=== PATIENT | female | born 1955 | race Two or more races ===

== ENCOUNTER 2020-05-28 17:44 | Inpatient (IN) | payer OTHER ==
[~2020-05-28] VITALS: Ht 157.5 cm; Wt 64.9 kg
[2020-05-28] MEDS ORDERED: METF-440 PO (18:04)
--- NOTE | 2020-05-28 18:17 | NUR ---
IV ACCESS STARTED ON L AC G18. BLOOD DRAW DONE.
[2020-05-28 18:26] LABS: BASOPHILS # (AUTO) 0.1 /CMM (0.0-0.2); BASOPHILS % (AUTO) 0.7 % (0.0-2.0); HEMATOCRIT 45 % (33-45); HEMOGLOBIN 14.4 g/dL (11.5-14.8); LYMPHOCYTES % (AUTO) 4.6 % (20.0-44.0); MEAN CORPUSCULAR HGB CONC 32 g/dl (31.0-36.0); MEAN CORPUSCULAR VOLUME 88 fL (82-100); MONOCYTES # (AUTO) 0.9 /CMM (0.1-1.30); NEUTROPHILS # (AUTO) 19.8 /CMM (1.8-8.9); NEUTROPHILS % (AUTO) 90.7 % (43.0-81.0); PLATELET COUNT (AUTO) 310 /CMM (150-450); RED BLOOD CELL COUNT(AUTO) 5.06 MIL/uL (4.0-5.2); WHITE BLOOD COUNT (AUTO) 21.8 K/uL (4.3-11.0)
[2020-05-28] MEDS ORDERED: IV LR 1000 ML 1,000 ML IV ONE ×2 (18:30)
[2020-05-28 18:34] LABS: CALCIUM, SERUM 9.2 mg/dL (8.5-10.1); CREATININE 0.8 mg/dL (0.6-1.3)
[2020-05-28] MEDS ORDERED: DEXAMETHASONE SOD PHOSPHATE 4 MG/ML VIAL IV ONE (19:00)
[2020-05-28] MEDS ORDERED: MAGNESIUM HYDROXIDE 30 ML UDC PO PRN (19:30)
[2020-05-28] MEDS ORDERED: Z GUARD REMEDY 2 OZ OINT TP PRN (19:30)
[2020-05-28] MEDS ORDERED: PIPERACILLIN /TAZOBACTAM 3.375 G in IV D5W 50 ML IV ONE (19:30)
[2020-05-28] MEDS ORDERED: ACETAMINOPHEN 325 MG TABLET PO PRN (19:30)
[2020-05-28] MEDS ORDERED: ONDANSETRON HCL/PF 4 MG/2 ML VIAL IVP PRN (19:30)
[2020-05-28] MEDS ORDERED: HYDROCODONE/APAP 5/325MG TABLET PO PRN (19:30)
[2020-05-28] MEDS ORDERED: MAG HYDROX/AL HYDROX/SIMETH 30 ML UDC PO PRN (19:30)
[2020-05-28] MEDS ORDERED: ZOLPIDEM TARTRATE 5 MG TABLET PO PRN (19:30)
[2020-05-28] MEDS ORDERED: DEXAMETHASONE SOD PHOSPHATE 10 MG/ML VIAL ONE (19:48)
--- NOTE | 2020-05-28 19:51 | NUR ---
COVID ANTIGEN ORDERED
--- NOTE | 2020-05-28 20:00 | NUR ---
PATIENT GOING TO ROOM 208, WHEN BED IS READY, PALLIATIVE MEDICINE PHYSICIAN WILL CALL WHEN ROOM IS CLEANED.
--- NOTE | 2020-05-28 20:20 | NUR ---
PT VSS, RR EVEN & UNLABORED. DENIES CP, DIZZINESS, N/V AT THIS TIME. WILL CONT TO MONITOR.
[2020-05-28 20:29] LABS: BAND % (MANUAL) 7 % (0.0-5.0); LYMPHOCYTES % (MANUAL) 8 % (16-48); MONOCYTES % (MANUAL) 2 % (0-11.0); NEUTROPHILS % (MANUAL) 83 (42-76)
[2020-05-28 21:55] LABS: BILIRUBIN,DIRECT 0.4 mg/dL (0.0-0.2)
--- NOTE | 2020-05-28 22:03 | NUR ---
REPORT GIVEN TO DENISHA MIN FOR MARLO.
[2020-05-28 22:30] VITALS: BP 138/72
--- NOTE | 2020-05-28 22:33 | NUR ---
TELE/PHARMACY TECHNICIAN INSTRUCTOR NOTE Patient awake in bed, A/O x4, Lithuanian speaking only. Tele monitor reading sinus rhythm. No acute distress or SOB noted. Breathing even, slightly labored, on NC 4 LPM, [id number] 95%. No JVD. Tongue midline, no tracheal deviation. CRP <3seconds. Brachial and pedal pulses 2+. Skin warm, pink, dry, intact. Abdomen small, round, non-tender. BS active. Patient is incontinent. Urine output clear, yellow, no sediment. No edema. IV site LAC 18g, saline locked. No signs of redness or infiltration. Patient on cardiac diet. Patient currently has no appetite. Patient oriented to room. Patient refused flu vaccine. Bed in low position, wheels locked, side rails up x2, call light within reach.
[2020-05-29] VITALS: BP 108/64
[2020-05-29] MEDS: ENOXAPARIN SODIUM 40 MG/0.4 ML DISP.SYRIN SQ SCH ×2 (00:44→21:40)
[2020-05-29] MEDS ORDERED: AZITHROMYCIN 500 MG VIAL ONE (03:10)
[2020-05-29] MEDS ORDERED: CEFTRIAXONE 1 G VIAL ONE (03:19)
[2020-05-29] MEDS: AZITHROMYCIN 500 MG in IV D5W 250 ML IV SCH (03:40)
[2020-05-29 04:00] VITALS: BP_SYST 114; BP_SYST 120; BP_DIAS 61; BP_DIAS 75
[2020-05-29] MEDS: CEFTRIAXONE 1 G in IV D5W 50 ML IV SCH (04:40)
[2020-05-29] MEDS: PANTOPRAZOLE 40 MG TABLET.DR PO SCH (06:34)
[2020-05-29 06:52] LABS: BASOPHILS % (AUTO) 0.1 % (0.0-2.0); HEMATOCRIT 40 % (33-45); HEMOGLOBIN 13.2 g/dL (11.5-14.8); LYMPHOCYTES % (AUTO) 5.2 % (20.0-44.0); MEAN CORPUSCULAR HGB CONC 33 g/dl (31.0-36.0); MEAN CORPUSCULAR VOLUME 87 fL (82-100); MONOCYTES # (AUTO) 0.5 /CMM (0.1-1.30); MONOCYTES % (AUTO) 2.8 % (2.0-12.0); NEUTROPHILS # (AUTO) 16.9 /CMM (1.8-8.9); NEUTROPHILS % (AUTO) 91.9 % (43.0-81.0); PLATELET COUNT (AUTO) 277 /CMM (150-450); RED BLOOD CELL COUNT(AUTO) 4.63 MIL/uL (4.0-5.2); WHITE BLOOD COUNT (AUTO) 18.4 K/uL (4.3-11.0)
--- NOTE | 2020-05-29 07:10 | NUR ---
TELE/RN CLOSING NOTE Patient awake in bed, A/O x4, Frisian speaking only. Tele monitor reading sinus rhythm. No acute distress or SOB noted. Breathing even, slightly labored, on NC 4 LPM, [id number] 95%. Skin warm, pink, dry, intact. Patient is incontinent. Urine output clear, yellow, no sediment. No edema. IV site LAC 18g, saline locked. No signs of redness or infiltration. Patient on cardiac diet. Patient currently has no appetite. Patient oriented to room. Bed in low position, wheels locked, side rails up x2, call light within reach.
[2020-05-29 07:11] LABS: CREATININE 0.6 mg/dL (0.6-1.3); MAGNESIUM 2.5 mg/dL (1.8-2.4); POTASSIUM 3.8 mmol/L (3.5-5.1)
[2020-05-29 07:25] LABS: THYROID STIMULATING HORMONE 0.21 uIU/mL (0.358-3.74)
[2020-05-29 08:00] VITALS: BP 90/69
--- NOTE | 2020-05-29 08:00 | NUR ---
RN OPENING NOTE Patient is resting in bed, A/O x4, showing no signs of acute distress, saturating 96% on 4L NC. Tele monitor SR 80s. IV line in the LAC#18g is clean and intact flushing well. Patient is ambulatory with BRP and indepedent with care. Bed is in lowest position, side rails x2 in upright position, call light is within reach, fall safety and aspiration precautions enforced. Will continue with plan of care.
[2020-05-29] MEDS: DEXAMETHASONE SOD PHOSPHATE 10 MG/ML VIAL IV SCH (08:40)
[2020-05-29 12:00] VITALS: BP 120/68
--- NOTE | 2020-05-29 12:45 | NUR ---
RN NOTE Notified MD Hgb A1C 10.8 and d-dimer of 0.91
[2020-05-29 13:52] LABS: ALBUMIN 2.4 g/dL (3.4-5.0); BILIRUBIN,DIRECT 0.2 mg/dL (0.0-0.2); BILIRUBIN,TOTAL 0.7 mg/dL (0.2-1.0); TOTAL PROTEIN, SERUM 7.3 g/dL (6.4-8.2)
[2020-05-29 15:28] LABS: C-REACTIVE PROTEIN 42.7 mg/dL (0.0-0.9)
[2020-05-29] MEDS ORDERED: DEXTROSE 50%-WATER 50 ML DISP.SYRIN IV PRN (15:30)
--- NOTE | 2020-05-29 15:57 | NUR ---
RN NOTE Ok per Dr. Brown for patient to be on Metformin and sliding scale.
[2020-05-29 16:00] VITALS: BP 123/66
[2020-05-29 16:09] LABS: FERRITIN 1742 ng/mL (8-388)
[2020-05-29] MEDS: METFORMIN 500 MG TABLET PO SCH (16:51)
[2020-05-29] MEDS: BLOOD SUGAR DIAGNOSTIC 1 EACH STRIP VI SCH ×2 (16:51→21:40)
[2020-05-29] MEDS: INSULIN REGULAR, HUMAN 100 UNIT/ML 3 ML VIAL SQ PRN (16:52)
[2020-05-29] MEDS ORDERED: REMDESIVIR (INVESTIGATIONAL) 200 MG in IV NS 0.9% 210 ML IV ONE (17:00)
--- NOTE | 2020-05-29 17:19 | NUR ---
RN NOTE BS 420. 15 units insulin given per protocol and Metformin PO. Dr. Brown notified.
--- NOTE | 2020-05-29 19:07 | NUR ---
RN CLOSING NOTE Patient is resting in bed, A/O x4, showing no signs of acute distress, saturating 96% on 4L NC. Tele monitor SR 80s. IV line in the LAC#18g is clean and intact flushing well. Convalescent plasma consent signed by the patient. Patient is ambulatory with BRP and indepedent with care. All patient needs met, all due medicatiobs given. Bed is in lowest position, side rails x2 in upright position, call light is within reach, fall safety and aspiration precautions enforced. Isolation precautions d/t positive COVID. Will endorse to shift stacker for MARLO.
--- NOTE | 2020-05-29 19:30 | NUR ---
COMMUNITY MARKETING MANAGER NOTES RECEIVED ON BED A/O X3,BREATHING NON LABORED,O2 IN USED AT 4L/NC TO KEEP O2 SAT ABOVE 90%.SALINE LOCK LEFT AC INTACT AND PATENT.ISOLATION PRECAUTION FOR COVID POSITIVE.CALL LIGHT IN REACH,NEEDS ANTICIPATED.
--- NOTE | 2020-05-29 19:50 | NUR ---
BANQUET PILOT NOTES BLOOD SUGAR RE-CHECK 361,POST GIVING HUMULIN R 15 UNITS AT 1730 BY DAY NURSE
[2020-05-29 20:00] VITALS: BP 113/64
--- NOTE | 2020-05-29 22:00 | NUR ---
PRODUCT INSPECTION SUPERVISOR NOTES ACCU-CHECK BLOOD SUGAR CHECK 330,COVERED WITH HUMULIN R 8UNITS PER SLIDING SCALE.SNACKS AT BEDSIDE.
[2020-05-29] MEDS: *INSULIN REGULAR(HUMULIN R)HUM 100 UNIT/ML VIAL SQ PRN (22:06)
[2020-05-30] MEDS: CEFTRIAXONE 1 G in IV D5W 50 ML IV SCH (01:30)
[2020-05-30] MEDS: AZITHROMYCIN 500 MG in IV D5W 250 ML IV SCH (02:00)
[2020-05-30 04:00] VITALS: BP 116/68
[2020-05-30] MEDS: BLOOD SUGAR DIAGNOSTIC 1 EACH STRIP VI SCH ×4 (05:36→22:05)
[2020-05-30] MEDS: INSULIN REGULAR, HUMAN 100 UNIT/ML 3 ML VIAL SQ PRN ×3 (05:38→16:36)
--- NOTE | 2020-05-30 05:40 | NUR ---
POWDER CORE TESTER NOTES ACCU-CHECK BLOOD SUGAR CHECK 311,COVERED WITH HUMULIN R 12 UNITS PER AC SLIDING SCALE.
--- NOTE | 2020-05-30 05:54 | NUR ---
STOCK SORTER NOTES FOLLOWED UP WITH BLOOD BANK,SPOKED TO [facility],CONVALESCENT PLASMA IS NOT AVAILABLE YET
--- NOTE | 2020-05-30 06:25 | NUR ---
TONE REGULATOR NOTES SLEPT WITH INTERVALS,NO SOB NOTED,AFEBRILE THRU OUT SHIFT,IV ABX TOLERATED WELL.STILL WAITING FOR 1 UNIT CONVALESCENT PLASMA,NOT AVAILABLE YET.ENDORSE TO DAY NURSE FOR MARLO.
[2020-05-30 06:59] LABS: BASOPHILS # (AUTO) 0.1 /CMM (0.0-0.2); BASOPHILS % (AUTO) 0.3 % (0.0-2.0); HEMATOCRIT 40 % (33-45); HEMOGLOBIN 13.1 g/dL (11.5-14.8); LYMPHOCYTES # (AUTO) 1.6 /CMM (0.8-4.8); LYMPHOCYTES % (AUTO) 9.1 % (20.0-44.0); MEAN CORPUSCULAR HGB CONC 33 g/dl (31.0-36.0); MEAN CORPUSCULAR VOLUME 87 fL (82-100); MONOCYTES # (AUTO) 1.4 /CMM (0.1-1.30); MONOCYTES % (AUTO) 8.2 % (2.0-12.0); NEUTROPHILS # (AUTO) 14.4 /CMM (1.8-8.9); NEUTROPHILS % (AUTO) 82.4 % (43.0-81.0); PLATELET COUNT (AUTO) 358 /CMM (150-450); WHITE BLOOD COUNT (AUTO) 17.5 K/uL (4.3-11.0)
[2020-05-30 07:10] LABS: ALBUMIN 2.1 g/dL (3.4-5.0); BILIRUBIN,DIRECT 0.1 mg/dL (0.0-0.2); BILIRUBIN,TOTAL 0.4 mg/dL (0.2-1.0); CALCIUM, SERUM 8.7 mg/dL (8.5-10.1); CREATININE 0.7 mg/dL (0.6-1.3); MAGNESIUM 2.3 mg/dL (1.8-2.4); PHOSPHORUS 2.1 mg/dL (2.5-4.9); POTASSIUM 4.1 mmol/L (3.5-5.1); TOTAL PROTEIN, SERUM 6.4 g/dL (6.4-8.2)
--- NOTE | 2020-05-30 07:15 | NUR ---
SAS STATISTICAL PROGRAMMER NOTES PATIENT RECEIVED IN BED RESTING COMFORTABLY, ALERT AND ORIENTED X 3, ITALIAN SPEAKING. ON NASAL CANNULA, 4L WITH NON-LABORED BREATHING, AND NO ACUTE DISTRESS NOTED AT THIS TIME. PATIENT ON PRECISION OPTICS TECHNICIAN SINUS RHYTHM 62. SKIN WARM AND DRY TO TOUCH, IV ACCESS INTACT AND PATENT. ENDORSE FROM [facility] AWAITING FOR PLASMA. PATIENT PRESENTS WITH NO PAIN OR DISCOMFORT AT THIS TIME. ISOLATION PRECAUTIONS IMPLEMENTED. SAFETY PRECAUTIONS IMPLEMENTED BED LOCKED, BED IN THE LOWEST POSITION, BILATERAL SIDE RAILS UP, AND CALL LIGHT WITHIN EASY REACH. WILL CONTINUE TO MONITOR.
[2020-05-30 08:00] VITALS: BP 117/60
[2020-05-30] MEDS: PANTOPRAZOLE 40 MG TABLET.DR PO SCH (08:11)
[2020-05-30] MEDS: DEXAMETHASONE SOD PHOSPHATE 10 MG/ML VIAL IV SCH (08:12)
[2020-05-30] MEDS: METFORMIN 500 MG TABLET PO SCH ×2 (08:12→16:25)
[2020-05-30 09:06] VITALS: BP 117/60
--- NOTE | 2020-05-30 10:20 | NUR ---
SENIOR CLIMATE ADVISOR NOTES CALLED [facility], FOR PATIENT'S DISCHARGE SUMMARY REQUESTED BY DR. DODD, LEFT VOICEMAIL TO MEDICAL RECORDS, WILL AWAIT FOR CALL AND PATIENTS MEDICAL RECORD.
[2020-05-30] MEDS ORDERED: K PHOS NEUTRAL 250 MG TABLET PO ONE (10:30)
[2020-05-30 12:00] VITALS: BP 136/73
--- NOTE | 2020-05-30 12:00 | NUR ---
BAIL BOND AGENT NOTES FOLLOWED UP WITH BLOOD BANK ABOUT CONVALESCENT PLASMA AND PLASMA IS NOT AVAILABLE YET.
--- NOTE | 2020-05-30 15:02 | NUR ---
AERIAL CROP DUSTER NOTES FOLLOWED UP WITH BLOOD BANK ABOUT CONVALESCENT PLASMA AND PLASMA IS NOT AVAILABLE YET, BLOOD BANK WILL CALL AND NOTIFY WHEN IT IS READY.
[2020-05-30 15:52] VITALS: BP 113/63
[2020-05-30] MEDS: REMDESIVIR (INVESTIGATIONAL) 100 MG in IV NS 0.9% 230 ML IV SCH (16:25)
--- NOTE | 2020-05-30 18:14 | NUR ---
AUTOMATION TECHNICIAN NOTES PATIENT IN BED RESTING COMFORTABLY, ALERT AND ORIENTED X 3, CYMRAES SPEAKING. ON NASAL CANNULA, 4L WITH NON-LABORED BREATHING, AND NO ACUTE DISTRESS NOTED AT THIS TIME. PATIENT ON SCHEDULING MANAGER SINUS RHYTHM 68. PATIENT SKIN KEPT CLEAN, WARM AND DRY TO TOUCH, IV ACCESS INTACT AND PATENT. STILL AWAITING FOR BLOOD BANK FOR CONVALESCENT PLASMA. PATIENT PRESENTS WITH NO PAIN OR DISCOMFORT AT THIS TIME. ISOLATION PRECAUTIONS IMPLEMENTED. SAFETY PRECAUTIONS IMPLEMENTED WITH THE BED LOCKED, BED IN THE LOWEST POSITION, BILATERAL SIDE RAILS UP, AND CALL LIGHT WITHIN EASY REACH. WILL ENDORSE PATIENTS PLAN OF CARE TO UPCOMING RN.
[2020-05-30 20:00] VITALS: BP 129/83
[2020-05-30] MEDS: *INSULIN REGULAR(HUMULIN R)HUM 100 UNIT/ML VIAL SQ PRN (22:06)
[2020-05-30] MEDS: ENOXAPARIN SODIUM 40 MG/0.4 ML DISP.SYRIN SQ SCH (22:06)
--- NOTE | 2020-05-30 22:07 | NUR ---
ACCU CHECK 257: BLOOD SUGAR RESULT IS 257, 6UNITS OF INSULIN ADMINISTERED PER SLIDING SCALE.
--- NOTE | 2020-05-30 23:03 | NUR ---
rn notes: contacted lab, follow up regarding plasma convalescent, per lab unit still not available, and will let us know once its received from [facility].
[2020-05-31] VITALS (9 sets, daily range): BP systolic 118–153; BP diastolic 64–74
[2020-05-31] MEDS: CEFTRIAXONE 1 G in IV D5W 50 ML IV SCH (01:21)
[2020-05-31] MEDS: AZITHROMYCIN 500 MG in IV D5W 250 ML IV SCH (02:10)
--- NOTE | 2020-05-31 04:00 | NUR ---
rn notes: pt c/o pain on iv access site, iv access on left ac patent and flushing well, with good blood return noted, on hl, no s/s of swelling or infiltration noted. informed pt if its causing discomfort then rn will restart new iv access on the other arm where pt agree. reinserted iv access on right fa g 22 with good blood return noted. transparent dressing applied, placed on saline lock, proper labels attached. left fa offloaded on pillow for comfort, encourage pt to exercise left arm.
--- NOTE | 2020-05-31 05:15 | NUR ---
rn notes/plasma follow up: Contacted lab x [phone], spoked with [facility], per [facility] there is no available plasma at this time, but the [facility] is [facility], stated they will call in am once it is receive.
[2020-05-31] MEDS: BLOOD SUGAR DIAGNOSTIC 1 EACH STRIP VI SCH ×4 (06:23→22:17)
[2020-05-31] MEDS: PANTOPRAZOLE 40 MG TABLET.DR PO SCH (06:24)
[2020-05-31] MEDS: INSULIN REGULAR, HUMAN 100 UNIT/ML 3 ML VIAL SQ PRN ×3 (06:26→17:28)
--- NOTE | 2020-05-31 06:26 | NUR ---
accu check 190: blood sugar check performed and result is c190, 3units of regular insulin administered per sliding scale.
--- NOTE | 2020-05-31 06:42 | NUR ---
End of shift report: Kept on airborne isolation, covid positive, n95 with face shield, ppe utilized. Pt on sinus rhythm hr 60. Pt remains on 6L simple mask, spo2 ranging 90-96%, 88% on ra. Encourage pt to performed deep breathing coughing exercises. Pt a/o x4, English speaking. Iv access on left ac and right fa, patent and flushing well, on hl, no s/s of iv infiltration noted. Pt uses bed nolasco. Lfa offloaded on pillows. Ble offloaded on pillows. Scd in use. Pt remains afebrile. All communication translated in English. Plan of care: Continue Dexamethasone inj daily, cont remdesevir iv daily, cont iv atb, pending am labs, still waiting for convalescent plasma to become available, consent in chart. Safety precautions for fall initiated, call light in reach, will endorse to day rn for ralph.
[2020-05-31 07:28] LABS: BASOPHILS % (AUTO) 0.1 % (0.0-2.0); HEMATOCRIT 39 % (33-45); HEMOGLOBIN 12.8 g/dL (11.5-14.8); LYMPHOCYTES # (AUTO) 1.8 /CMM (0.8-4.8); MEAN CORPUSCULAR HGB CONC 33 g/dl (31.0-36.0); MEAN CORPUSCULAR VOLUME 87 fL (82-100); MONOCYTES # (AUTO) 1.4 /CMM (0.1-1.30); MONOCYTES % (AUTO) 9.3 % (2.0-12.0); NEUTROPHILS # (AUTO) 11.5 /CMM (1.8-8.9); NEUTROPHILS % (AUTO) 78.6 % (43.0-81.0); PLATELET COUNT (AUTO) 398 /CMM (150-450); WHITE BLOOD COUNT (AUTO) 14.7 K/uL (4.3-11.0)
[2020-05-31 07:34] LABS: ALBUMIN 2.3 g/dL (3.4-5.0); BILIRUBIN,DIRECT 0.1 mg/dL (0.0-0.2); BILIRUBIN,TOTAL 0.4 mg/dL (0.2-1.0); CALCIUM, SERUM 8.8 mg/dL (8.5-10.1); CREATININE 0.7 mg/dL (0.6-1.3); MAGNESIUM 2.2 mg/dL (1.8-2.4); PHOSPHORUS 2.4 mg/dL (2.5-4.9); POTASSIUM 4.1 mmol/L (3.5-5.1); TOTAL PROTEIN, SERUM 6.3 g/dL (6.4-8.2)
--- NOTE | 2020-05-31 07:35 | NUR ---
TRAIN OPERATOR NOTES RECEIVED PATIENT IN BED, ALERT AND ORIENTED X4. HOB ELEVATED. ON O2 AT 6L/MIN VIA SIMPLE MASK. LEFT AC # 18 SL AND RT FA # 22 SL INTACT AND PATENT. ON TELE MONITORING SR : 69. BED IN LOWEST POSITION, LOCKED. BED ALARM ON. FREQUENT VISUAL CHECK DONE. CALL LIGHT WITHIN REACH. ABLE TO VERBALIZE NEEDS.
[2020-05-31] MEDS: DEXAMETHASONE SOD PHOSPHATE 10 MG/ML VIAL IV SCH (08:47)
[2020-05-31] MEDS: METFORMIN 500 MG TABLET PO SCH ×2 (08:47→17:03)
[2020-05-31] MEDS ORDERED: K PHOS NEUTRAL 250 MG TABLET PO ONE (12:00)
[2020-05-31] MEDS: REMDESIVIR (INVESTIGATIONAL) 100 MG in IV NS 0.9% 230 ML IV SCH (17:03)
--- NOTE | 2020-05-31 18:55 | NUR ---
CHILD LIFE SPECIALIST NOTES PATIENT RESTING COMFORTABLY IN BED, ASLEEP. ALERT AND ORIENTED X4. HOB ELEVATED. TITRATED PATIENT DURING THE SHIFT, NOW ON ROOM AIR WITH SPO2 92-95%. NO S/S OF RESPIRATORY DISTRESS DURING THE SHIFT. WITH OCCASIONAL DRY COUGH. LEFT HAND # 20 SL AND RT FA # 22 SL INTACT AND PATENT. BED IN LOWEST POSITION, LOCKED. S/P CONVALESCENT PLASMA AND DAY 2 OF REMDESIVIR WITHOUT S/S OF COMPLICATIONS OBSERVED DURING THE SHIFT. BED ALARM ON. FREQUENT VISUAL CHECK DONE. IN NO APPARENT DISTRESS. CALL LIGHT WITHIN REACH. ABLE TO VERBALIZE NEEDS.
--- NOTE | 2020-05-31 19:40 | NUR ---
TRUCK DRIVER INSTRUCTOR NOTE: PATIENT RESTING IN BED, NO ACUTE DISTRESS NOTED. BREATHING EVEN AND UNLABORED, NO SOB NOTED. IV TO LEFT HAND AND RFA IN PLACE. ISOLATION PRECAUTIONS OBSERVED. BED LOCKED AND IN LOWEST POSITION, CALL LIGHT IN REACH. WILL CONTINUE TO MONITOR.
[2020-05-31] MEDS: ENOXAPARIN SODIUM 40 MG/0.4 ML DISP.SYRIN SQ SCH (22:17)
[2020-05-31] MEDS: *INSULIN REGULAR(HUMULIN R)HUM 100 UNIT/ML VIAL SQ PRN (23:00)
--- NOTE | 2020-05-31 23:00 | NUR ---
MATE SHIP NOTE: PATIENT BLOOD SUGAR LEVEL 185MG/DL, PATIENT TO RECEIVE 3 UNITS OF INSULIN PER SLIDING SCALE, NO S/S OF HYPER/HYPOGLYCEMIA. WILL CONTINUE TO MONITOR.
[2020-06-01] VITALS: BP 118/59
[2020-06-01] MEDS: CEFTRIAXONE 1 G in IV D5W 50 ML IV SCH (02:00)
[2020-06-01] MEDS: AZITHROMYCIN 500 MG in IV D5W 250 ML IV SCH (02:49)
[2020-06-01 06:47] LABS: BASOPHILS % (AUTO) 0.2 % (0.0-2.0); EOSINOPHILS % (AUTO) 0.1 % (0.0-6.0); HEMATOCRIT 38 % (33-45); HEMOGLOBIN 12.6 g/dL (11.5-14.8); LYMPHOCYTES # (AUTO) 2.4 /CMM (0.8-4.8); LYMPHOCYTES % (AUTO) 14.4 % (20.0-44.0); MEAN CORPUSCULAR HGB CONC 33 g/dl (31.0-36.0); MEAN CORPUSCULAR VOLUME 87 fL (82-100); MONOCYTES # (AUTO) 1.8 /CMM (0.1-1.30); MONOCYTES % (AUTO) 10.9 % (2.0-12.0); NEUTROPHILS # (AUTO) 12.6 /CMM (1.8-8.9); NEUTROPHILS % (AUTO) 74.4 % (43.0-81.0); PLATELET COUNT (AUTO) 383 /CMM (150-450); RED BLOOD CELL COUNT(AUTO) 4.43 MIL/uL (4.0-5.2)
--- NOTE | 2020-06-01 07:00 | NUR ---
RECORDS AND INFORMATION MANAGER NOTE: PATIENT RESTING IN BED, NO ACUTE DISTRESS NOTED. BREATHING EVEN AND UNLABORED, NO SOB NOTED. IV TO LEFT HAND AND RFA IN PLACE. PATIENT BLOOD SUGAR LEVEL 129MG/DL, NO INSULIN NEEDED PER SLIDING SCALE. ISOLATION PRECAUTIONS OBSERVED. BED LOCKED AND IN LOWEST POSITION, CALL LIGHT IN REACH. WILL ENDORSE TO DAY NURSE TO CONTINUE WITH PLAN OF CARE.
[2020-06-01 07:18] LABS: ALBUMIN 2.3 g/dL (3.4-5.0); BILIRUBIN,DIRECT 0.2 mg/dL (0.0-0.2); BILIRUBIN,TOTAL 0.5 mg/dL (0.2-1.0); CALCIUM, SERUM 8.6 mg/dL (8.5-10.1); CREATININE 0.5 mg/dL (0.6-1.3); MAGNESIUM 2.1 mg/dL (1.8-2.4); PHOSPHORUS 2.6 mg/dL (2.5-4.9); POTASSIUM 3.6 mmol/L (3.5-5.1)
--- NOTE | 2020-06-01 07:30 | NUR ---
MECHANICAL FACILITIES TECHNICIAN NOTES PT IN BED, AWAKE, ALERT AND ORIENTED, DENIES PAIN, BREATHING PATTERN NORMAL, CALL LIGHT WITHIN REACH, ISOLATION PRECAUTIONS OBSERVED, NEEDS ATTENDED, KEPT WARM AND COMFORTABLE IN BED.
[2020-06-01 08:00] VITALS: BP 115/63
[2020-06-01] MEDS: BLOOD SUGAR DIAGNOSTIC 1 EACH STRIP VI SCH ×4 (08:09→21:02)
[2020-06-01] MEDS: METFORMIN 500 MG TABLET PO SCH ×2 (08:09→16:25)
[2020-06-01] MEDS: PANTOPRAZOLE 40 MG TABLET.DR PO SCH (08:09)
[2020-06-01] MEDS: DEXAMETHASONE SOD PHOSPHATE 10 MG/ML VIAL IV SCH (08:09)
[2020-06-01] MEDS: INSULIN REGULAR, HUMAN 100 UNIT/ML 3 ML VIAL SQ PRN ×2 (11:36→16:30)
[2020-06-01] MEDS: MAGNESIUM HYDROXIDE 30 ML UDC PO PRN (11:40)
[2020-06-01 12:00] VITALS: BP 104/63
--- NOTE | 2020-06-01 12:00 | NUR ---
EXECUTIVE DIRECTOR SHELTERED WORKSHOP NOTES PT IN BED, AWAKE, ALERT AND ORIENTED, SPEAKING ON THE PHONE WITH FAMILY, WITH COMPLAINT OF CONSTIPATION, MOM GIVEN ORDERED, ASSISTED WITH TOILETING NEEDS, NO SOB AT THIS TIME, NO COMPLAINT OF PAIN, SEEN BY DR. MO.
[2020-06-01 16:00] VITALS: BP 107/60
[2020-06-01] MEDS: REMDESIVIR (INVESTIGATIONAL) 100 MG in IV NS 0.9% 230 ML IV SCH (17:11)
--- NOTE | 2020-06-01 18:03 | NUR ---
SHORE MAN NOTES PT IN BED, AWAKE, ALERT AND ORIENTED, SPEAKING ON THE PHONE WITH FAMILY MEMBERS, PM MEDS GIVEN ORDERED, KEPT WARM AND COMFORTABLE IN BED, ALL NEEDS ATTENDED.
--- NOTE | 2020-06-01 19:05 | NUR ---
INSTALLER METAL FLOORING OPENING NOTES RECEIVED PATIENT AWAKE ALERT AND ORIENTED X4, ON O2 2 L VIS NC TOLERATING WELL, SP02 WNL 9%, RESPIRATIONS EVEN AND UNLABORED WITH EQUAL RISE AND FALL OF CHEST, DENIES ANY PAIN OR DISCOMFORT AT THIS TIME, IV SITE TO LEFT HAND #20 SL AND RIGHT FA #22 SL, NO REDNESS, NO INFILTRATION PRESENT, ON CARDIAC MONITORING SR 88. SAFETY PRECAUTIONS RENDERED, LOW BED AND LOCKED, BED ALARM IN PLACE, ALL NEEDS ATTENDED, ORIENTED TO STAFF AND CALL LIGHT AND KEPT WITHIN REACH, REMAINS COMFORTABLE WILL CONTINUE TO MONITOR AND ATTEND TO NEEDS.
[2020-06-01 20:00] VITALS: BP 108/64
[2020-06-01 20:20] VITALS: BP 108/64
--- NOTE | 2020-06-01 20:21 | NUR ---
reverberatory furnace supervisor notes patient noted with cough and patient requested cough medication, hospitalist made aware of patient request, new order for robitussin 15cc q6 hr prn. order read back and carried out.
[2020-06-01] MEDS ORDERED: GUAIFENESIN 300 MG/15 ML UDC PO PRN (20:30)
--- NOTE | 2020-06-01 21:00 | NUR ---
litigation attorney notes robitussin given as ordered, will continue to monitor for effectiveness.
[2020-06-01] MEDS: ENOXAPARIN SODIUM 40 MG/0.4 ML DISP.SYRIN SQ SCH (21:01)
[2020-06-01] MEDS: *INSULIN REGULAR(HUMULIN R)HUM 100 UNIT/ML VIAL SQ PRN (21:04)
[2020-06-02] VITALS (7 sets, daily range): BP systolic 90–114; BP diastolic 57–69
[2020-06-02] MEDS: CEFTRIAXONE 1 G in IV D5W 50 ML IV SCH (01:20)
[2020-06-02] MEDS: AZITHROMYCIN 500 MG in IV D5W 250 ML IV SCH (01:55)
[2020-06-02] MEDS: BLOOD SUGAR DIAGNOSTIC 1 EACH STRIP VI SCH ×4 (06:17→21:52)
[2020-06-02] MEDS: INSULIN REGULAR, HUMAN 100 UNIT/ML 3 ML VIAL SQ PRN ×3 (06:18→17:34)
--- NOTE | 2020-06-02 06:31 | NUR ---
SHEAR SCRAPMAN CLOSING NOTES PATIENT AWAKE ALERT AND ORIENTED X4, ON O2 2 L VIS NC TOLERATING WELL, SP02 WNL 93-97% THROUGHOUT SHIFT, RESPIRATIONS EVEN AND UNLABORED WITH EQUAL RISE AND FALL OF CHEST, DENIES ANY PAIN OR DISCOMFORT AT THIS TIME, STATES FEELS OKAY WITH [address] DOES NOT FEEL SOB. IV SITE TO LEFT HAND #20 SL AND RIGHT FA #22 SL, NO REDNESS, NO INFILTRATION PRESENT,ABX IV ORDERED GIVEN NO ADVERSE REACTIONS, ON CARDIAC MONITORING SR 72. SAFETY PRECAUTIONS RENDERED, BED VARELA OFFERED, PERINEAL CARE DONE, LOW BED AND LOCKED, BED ALARM IN PLACE, ALL NEEDS ATTENDED, CALL LIGHT KEPT WITHIN REACH, FLUIDS OFFERED, ROBITUSSIN EFFECTIVE, REMAINS COMFORTABLE WILL CONTINUE TO MONITOR AND ATTEND TO NEEDS AND ENDORSE TO NEXT SHIFT.
[2020-06-02 06:43] LABS: BASOPHILS # (AUTO) 0.1 /CMM (0.0-0.2); BASOPHILS % (AUTO) 0.4 % (0.0-2.0); EOSINOPHILS % (AUTO) 0.3 % (0.0-6.0); HEMATOCRIT 41 % (33-45); HEMOGLOBIN 13.5 g/dL (11.5-14.8); LYMPHOCYTES # (AUTO) 2.6 /CMM (0.8-4.8); LYMPHOCYTES % (AUTO) 12.5 % (20.0-44.0); MEAN CORPUSCULAR HGB CONC 33 g/dl (31.0-36.0); MEAN CORPUSCULAR VOLUME 87 fL (82-100); MONOCYTES # (AUTO) 1.7 /CMM (0.1-1.30); MONOCYTES % (AUTO) 8.4 % (2.0-12.0); NEUTROPHILS # (AUTO) 16.1 /CMM (1.8-8.9); NEUTROPHILS % (AUTO) 78.4 % (43.0-81.0); PLATELET COUNT (AUTO) 400 /CMM (150-450); RED BLOOD CELL COUNT(AUTO) 4.78 MIL/uL (4.0-5.2); WHITE BLOOD COUNT (AUTO) 20.6 K/uL (4.3-11.0)
[2020-06-02 07:03] LABS: ALBUMIN 2.4 g/dL (3.4-5.0); BILIRUBIN,DIRECT 0.1 mg/dL (0.0-0.2); BILIRUBIN,TOTAL 0.5 mg/dL (0.2-1.0); CALCIUM, SERUM 8.7 mg/dL (8.5-10.1); CREATININE 0.6 mg/dL (0.6-1.3); MAGNESIUM 2.3 mg/dL (1.8-2.4); PHOSPHORUS 2.3 mg/dL (2.5-4.9); POTASSIUM 3.8 mmol/L (3.5-5.1); TOTAL PROTEIN, SERUM 6.3 g/dL (6.4-8.2)
--- NOTE | 2020-06-02 07:44 | NUR ---
TELE/RN OPENING NOTES RECEIVED PATIENT SLEEPING ON BED, EASILY AROUSABLE BY NAME AND LIGHT TOUCH. PATIENT ALERT AND ORIENTED X 4. PATIENT IN NO APPARENT RESPIRATORY DISTRESS NOTED. NO COMPLAINED OF PAIN NOTED AT THIS TIME. PATIENT IN TELE MONITOR READING SINUS RHYTHM 68 BPM. WILL CONTINUE TO MONITOR.
[2020-06-02] MEDS: METFORMIN 500 MG TABLET PO SCH ×2 (08:21→16:57)
[2020-06-02] MEDS: PANTOPRAZOLE 40 MG TABLET.DR PO SCH (08:21)
[2020-06-02] MEDS: DEXAMETHASONE SOD PHOSPHATE 10 MG/ML VIAL IV SCH (08:25)
[2020-06-02 08:36] LABS: LYMPHOCYTES % (MANUAL) 23 % (16-48); MONOCYTES % (MANUAL) 7 % (0-11.0); NEUTROPHILS % (MANUAL) 70 (42-76)
[2020-06-02] MEDS ORDERED: NEUTRA PHOS 1 POWD.PACKET PO ONE (10:30)
--- NOTE | 2020-06-02 15:30 | NUR ---
TELE/RN NOTES PATIENT SAO2 88-89 WAS NOTED, INCREASE THE 0XYGEN TO 3L/MIN. PATIENT SAO2 90-95. MD IS AWARE. WILL CONTINUE TO MONITOR.
[2020-06-02] MEDS: REMDESIVIR (INVESTIGATIONAL) 100 MG in IV NS 0.9% 230 ML IV SCH (17:06)
--- NOTE | 2020-06-02 18:42 | NUR ---
TELE/RN CLOSING NOTES PATIENT IS ON BED. ALERT AND ORIENTED X4. PATIENT IN NO APPARENT RESPIRATORY DISTRESS NOTED. NO SIGN AND SYMPTOM OF PAIN AT THIS TIME. ON OXYGEN AT 3L/MIN VIA NASAL CANNULA AND SATURATION 94%. TELE MONITOR IN PLACED READING SR 65-86 BPM. IV ACCESS AT LEFT HAND # 20G AND RIGHT FOREARM # 22G PATENT AND INTACT. SEEN AND EXAMINED BY MD WITH ORDERS MADE AND CARRIED OUT. ALL MEDICATION WAS GIVEN. SAFETY PRECAUTION WAS IN PLACED. CHECKED PATIENT EVERY 2 HOURS. BED IN LOWEST POSITION AND LOCKED. SIDERAILS UP X2. CALL LIGHT WITHIN REACH. WILL ENDORSED TO CLERK FUNERAL DETAIL FOR MARLO.
--- NOTE | 2020-06-02 19:10 | NUR ---
RN OPENING NOTES Received patient awake, resting on bed. No complaints made. Patient noted on bedpan, small BM noted. Perineal care done, kept patient clean, and comfortable. On tele monitor with NSR noted. On O2 via NC @ 3LPM, saturating well. Pt denies any discomfort at this time. On fall and aspiration precautions. Will continue to monitor accordingly.
[2020-06-02] MEDS: ENOXAPARIN SODIUM 40 MG/0.4 ML DISP.SYRIN SQ SCH (21:33)
[2020-06-02] MEDS: *INSULIN REGULAR(HUMULIN R)HUM 100 UNIT/ML VIAL SQ PRN (21:52)
[2020-06-03] VITALS: BP_SYST 112; BP_SYST 114; BP_DIAS 61; BP_DIAS 67
[2020-06-03] MEDS: CEFTRIAXONE 1 G in IV D5W 50 ML IV SCH (01:22)
[2020-06-03] MEDS: AZITHROMYCIN 500 MG in IV D5W 250 ML IV SCH (02:35)
[2020-06-03 04:00] VITALS: BP 114/67
[2020-06-03 04:57] VITALS: BP 112/61
[2020-06-03 06:15] LABS: BASOPHILS # (AUTO) 0.1 /CMM (0.0-0.2); BASOPHILS % (AUTO) 0.6 % (0.0-2.0); EOSINOPHILS % (AUTO) 0.2 % (0.0-6.0); HEMATOCRIT 38 % (33-45); HEMOGLOBIN 12.5 g/dL (11.5-14.8); LYMPHOCYTES % (AUTO) 11.7 % (20.0-44.0); MEAN CORPUSCULAR HGB CONC 33 g/dl (31.0-36.0); MEAN CORPUSCULAR VOLUME 87 fL (82-100); MONOCYTES # (AUTO) 1.2 /CMM (0.1-1.30); MONOCYTES % (AUTO) 7.2 % (2.0-12.0); NEUTROPHILS # (AUTO) 13.5 /CMM (1.8-8.9); NEUTROPHILS % (AUTO) 80.3 % (43.0-81.0); PLATELET COUNT (AUTO) 409 /CMM (150-450); WHITE BLOOD COUNT (AUTO) 16.8 K/uL (4.3-11.0)
--- NOTE | 2020-06-03 06:49 | NUR ---
RN CLOSING NOTES Pt on bed, afebrile the whole shift. All nursing needs attended, due meds given as ordered. No new unusualities noted. Kept on bed clean, dry and comfortable. Endorsed. Addendum: 06/03/20 at 0715 by GIOVANNA ZHANG RN Additional notes: Pt complaint pain in both peripheral IV sites. No blood return noted, pain noted upon flushing. Attempted to insert new IV site x4, no good site established. Pt refused IV insertion at this time. Will endorse to the next shift.
[2020-06-03 07:00] LABS: ALBUMIN 2.3 g/dL (3.4-5.0); BILIRUBIN,DIRECT 0.2 mg/dL (0.0-0.2); BILIRUBIN,TOTAL 0.5 mg/dL (0.2-1.0); CALCIUM, SERUM 8.6 mg/dL (8.5-10.1); CREATININE 0.6 mg/dL (0.6-1.3); PHOSPHORUS 3.2 mg/dL (2.5-4.9); POTASSIUM 4.1 mmol/L (3.5-5.1); TOTAL PROTEIN, SERUM 6.1 g/dL (6.4-8.2)
--- NOTE | 2020-06-03 07:35 | NUR ---
RN OPENING NOTE THE PATIENT IS RECEIVED IN BED. PATIENT IS ALERT AND ORIENTED X4. DENIES PAIN. RESPIRATION REGULAR AND UNLABORED. DENIES SOB. LEFT HAND G 20 AND RFA G 22 PRESENT BUT NO WORKING ANY OF THE LINES. EXTERNAL TELE BOX READING IS SR 64. WILL INSERT NEW IV LINE. BED LOW AND LOCKED. SIDE RAILS UP X3. CALL LIGHT WITHIN REACH. WILL CONTINUE TO MONITOR.
[2020-06-03 08:00] VITALS: BP 114/71
--- NOTE | 2020-06-03 08:00 | NUR ---
RN NEW IV SITE REMOVED LEFT HAND G 20 AND RFA G 22 IV LINES DUE TO NOT WORKING. INSTEAD, INSERED NEW LAC G 22. PATIENT TOLERATED THE PROCEDURE WELL.
[2020-06-03] MEDS: DEXAMETHASONE SOD PHOSPHATE 10 MG/ML VIAL IV SCH (08:27)
[2020-06-03] MEDS: PANTOPRAZOLE 40 MG TABLET.DR PO SCH (08:27)
[2020-06-03] MEDS: METFORMIN 500 MG TABLET PO SCH ×2 (08:27→17:30)
[2020-06-03] MEDS: BLOOD SUGAR DIAGNOSTIC 1 EACH STRIP VI SCH ×4 (08:49→21:57)
[2020-06-03] MEDS: INSULIN REGULAR, HUMAN 100 UNIT/ML 3 ML VIAL SQ PRN ×3 (09:07→18:25)
--- NOTE | 2020-06-03 10:00 | NUR ---
RN PATIENT ON OXYGEN THE PATIENT IS NOTED TO DESATURATING TO 86% ON ROOM AIR AT REST. PLACED THE PATIENT ON OXYGEN AT 2L/MIN VIA NASAL CANNULA. DR MO IS MADE AWARE.
[2020-06-03] MEDS ORDERED: METH4TAB3 PO (11:24)
[2020-06-03] MEDS ORDERED: AZIT250T13 PO (11:25)
[2020-06-03 12:00] VITALS: BP 106/61
--- NOTE | 2020-06-03 18:27 | NUR ---
RN CLOSING NOTE THE PATIENT IS ALERT AND ORIENTED X4. DENIES PAIN. RECEIVING OXYGEN AT 2L/MIN VIA NASAL CANNULA AND SATURATION IS AT 94%. DENIES SOB. LAC G 22 PATENT AND SALINE LOCKED. TELE BOX READING IS SR 81. THE PATIENT IS IN NO APPARENT DISTRESS. BED LOW AND LOCKED. SIDE RAILS UP X3. CALL LIGHT WITHIN REACH. WILL ENDORSE TO RETURNED ITEM CLERK.
--- NOTE | 2020-06-03 19:35 | NUR ---
ROSS FURNACE OPERATOR OPENING NOTES RECEIVED PATIENT IN BED, ALERT AND ORIENTED X 4. AMBULATORY, MALTESE SPEAKING AND ABLE TO FOLLOW DIRECTIONS. BREATHING REGULAR AND UNLABORED ON ROOM AIR. LEFT AC G22 IV LINE INTACT AND PATENT, FLUSHING WELL WITH NO BLEEDING OR S/S OF INFILTRATION NOTED. ON CARDIAC MONITORING WITH NSR AT 68bpm. NO COMPLAINTS OF PAIN/DISCOMFORT REPORTED AT THIS TIME. BED LOW AND LOCKED ON SEMI FOWLERS POSITION. CALL LIGHT IN REACH. WILL CONTINUE TO MONITOR.
[2020-06-03 20:00] VITALS: BP 109/57
[2020-06-03] MEDS: ENOXAPARIN SODIUM 40 MG/0.4 ML DISP.SYRIN SQ SCH (21:55)
[2020-06-03] MEDS: *INSULIN REGULAR(HUMULIN R)HUM 100 UNIT/ML VIAL SQ PRN (21:56)
--- NOTE | 2020-06-03 22:00 | NUR ---
CORRECTIVE THERAPY AIDE TEACHER NOTES BS 303mg/dl, 8UNITS REGULAR INSULIN GIVEN SQ. SNACKS PROVIDED ON BEDSIDE. WILL CONTINUE TO MONITOR.
[2020-06-04] VITALS: BP 104/63
[2020-06-04] MEDS: CEFTRIAXONE 1 G in IV D5W 50 ML IV SCH (01:06)
[2020-06-04] MEDS: AZITHROMYCIN 500 MG in IV D5W 250 ML IV SCH (01:44)
[2020-06-04] MEDS: MAGNESIUM HYDROXIDE 30 ML UDC PO PRN (01:53)
[2020-06-04] MEDS: PANTOPRAZOLE 40 MG TABLET.DR PO SCH (06:39)
--- NOTE | 2020-06-04 06:45 | NUR ---
REGULATORY AFFAIRS STRATEGY SPECIALIST CLOSING NOTES PATIENT IN BED, ALERT AND ORIENTED X 4. AFEBRILE WITH NO S/S OF DISTRESS OBSERVED. LEFT AC G22 IV LINE PATENT AND FLUSHING WELL. MAINTAINED ON CARDIAC MONITORING WITH NSR. NO COMPLAINTS OF PAIN/DISCOMFORT REPORTED AT THIS TIME. BED LOW AND LOCKED ON SEMI FOWLERS POSITION. CALL LIGHT IN REACH. WILL ENDORSE TO MORNING SHIFT FOR MARLO.
[2020-06-04] MEDS: BLOOD SUGAR DIAGNOSTIC 1 EACH STRIP VI SCH ×3 (06:47→17:01)
[2020-06-04] MEDS: INSULIN REGULAR, HUMAN 100 UNIT/ML 3 ML VIAL SQ PRN ×3 (06:48→17:01)
[2020-06-04 08:00] VITALS: BP 91/59
[2020-06-04] MEDS: DEXAMETHASONE SOD PHOSPHATE 10 MG/ML VIAL IV SCH (08:00)
[2020-06-04] MEDS: METFORMIN 500 MG TABLET PO SCH ×2 (08:00→17:00)
[2020-06-04 12:00] VITALS: BP 95/61
[2020-06-04 16:00] VITALS: BP 100/64
--- NOTE | 2020-06-04 16:00 | NUR ---
BARREL RIB MATTING MACHINE OPERATOR NOTES SPOKE TO PATIENTS DAUGHTER PROVIDED DISCHARGE INSTRUCTIONS. ALSO DISCHARGE INSTRUCTIONS PROVIDED TO PATIENT WITH HUNGARIAN SPEAKING PORTFOLIO MANAGER. DISCHARGE MEDICATIONS WAS DELIVERED ALREADY TO PATIENTS HOME. PATIENT WITH PORTABLE OXYGEN TANK. WAITING FOR STUDENT SUCCESS COACH BY FAMILY. ALL BELONGINGS ACCOUNTED FOR, BELONGING LIST SIGNED. WILL CONTINUE TO MONITOR.
--- NOTE | 2020-06-04 19:41 | NUR ---
UNIT EDUCATOR NOTES PATIENT DISCHARGED HOME. IN STABLE CONDITION. MD AWARE OF ALL ABNORMAL LABS AND TESTS. PATIENT TO ISOLATE AT HOME WITH DAUGHTER CAREGIVER. PERIPHERAL IV REMOVED. ID BAND REMOVED. DISCHARGE TEACHING PROVIDED TO PATIENT AND DAUGHTER. PATIENT ESCORTED TO CAR BY RACE AND SPORTS BOOK WRITER.
== END 2020-06-04 19:30 | disposition home or self-care (01) | DRG 137 ==
LOC: ER 17:59 → TELE-TD 21:28 → TELE2 05-29 00:20
PROVIDERS: ADMIT Student in an Organized Health Care Education/Training Program; ATTEND Internal Medicine
PROC: 30233L1 Transfusion of Nonautologous Fresh Plasma into Peripheral Vein, Percutaneous Approach (ICD-10-PCS; principal; 2020-05-31)
DX: U07.1 COVID-19 (principal); N39.0 Urinary tract infection, site not specified; J96.01 Acute respiratory failure with hypoxia; J12.89 Other viral pneumonia; E44.0 Moderate protein-calorie malnutrition; E11.65 Type 2 diabetes mellitus with hyperglycemia; Z79.84 Long term (current) use of oral hypoglycemic drugs
CPT/HCPCS: 36415; 71045-TC; 80048-TC; 80061-TC; 80076-TC; 82247-TC; 82248-TC; 82728-TC; 82962-TC; 83605-TC; 83735-TC; 84100-TC; 84439-TC; 84443-TC; 84484-TC; 85025-TC; 85378-TC; 85610-TC; 85730-TC; 86140-TC; 86850-TC; 87081-TC; C9803; G0378; J0456; J0696; J1100; J1650; J1815; J2543; J7030; J7050; J7060; J7120; P9017-BL; U0003

== ENCOUNTER 2022-05-31 16:45 | Emergency (ER) | payer OTHER ==
[~2022-05-31] VITALS: Ht 170.2 cm; Wt 63.0 kg
[~2022-05-31 16:45] MED LIST: AZIT250T13 PO; METF-440 PO; METH4TAB3 PO
--- NOTE | 2022-05-31 17:22 | NUR ---
BIBS W/ C/O FEVER, NAUSEA VOMITING AND DIARRHEA X 4 DAYS. + COVID TEST TODAY. TO ER BED 8.
[2022-05-31] MEDS ORDERED: ONDANSETRON HCL/PF 4 MG/2 ML VIAL IVP ONE (17:30)
[2022-05-31] MEDS ORDERED: IV NS 0.9% 1,000 ML IV ONE (17:30)
[2022-05-31] MEDS ORDERED: ONDANSETRON HCL/PF 4 MG/2 ML VIAL ONE (17:45)
[2022-05-31 17:50] LABS: BASOPHILS # (AUTO) 0.1 K/uL (0.0-0.2); BASOPHILS % (AUTO) 0.5 % (0.0-2.0); EOSINOPHILS % (AUTO) 0.2 % (0.0-6.0); HEMATOCRIT 42 % (33-45); HEMOGLOBIN 13.6 g/dL (11.5-14.8); LYMPHOCYTES # (AUTO) 1.5 K/uL (0.8-4.8); LYMPHOCYTES % (AUTO) 12.2 % (20.0-44.0); MEAN CORPUSCULAR HGB CONC 33 g/dl (31.0-36.0); MEAN CORPUSCULAR VOLUME 87 fL (82-100); NEUTROPHILS # (AUTO) 9.8 K/uL (1.8-8.9); NEUTROPHILS % (AUTO) 79.1 % (43.0-81.0); PLATELET COUNT (AUTO) 293 K/uL (150-450); RED BLOOD CELL COUNT(AUTO) 4.82 MIL/uL (4.0-5.2); WHITE BLOOD COUNT (AUTO) 12.3 K/uL (4.3-11.0)
[2022-05-31 18:12] LABS: ALBUMIN 3.8 g/dL (3.4-5.0); BILIRUBIN,TOTAL 0.8 mg/dL (0.2-1.0); CALCIUM, SERUM 9.5 mg/dL (8.5-10.1); CREATININE 0.9 mg/dL (0.6-1.3); POTASSIUM 3.5 mmol/L (3.5-5.1); TOTAL PROTEIN, SERUM 7.7 g/dL (6.4-8.2)
--- NOTE | 2022-05-31 18:16 | NUR ---
IV LINE ESTABLISHED ON LAC #20.
--- NOTE | 2022-05-31 18:45 | NUR ---
ADULT CARE PROVIDER AT BEDSIDE FOR XRAY
[2022-05-31] MEDS ORDERED: IBUP-1953 PO (19:27)
[2022-05-31] MEDS ORDERED: ONDA4TAB5 PO (19:27)
--- NOTE | 2022-05-31 19:30 | NUR ---
STUDENT RN AT BEDSIDE FOR GLUCOSE CHECK
--- NOTE | 2022-05-31 19:32 | NUR ---
Patient discharged to home in stable condition. Written and verbal after care instructions given. Patient verbalizes understanding of instruction. IV removed. Catheter intact and site benign. Pressure and 4x4 applied to site. No bleeding noted.PT ambulatory with a steady gait
[2022-05-31 19:49] VITALS: BP 111/64
== END 2022-05-31 19:40 | disposition home or self-care (01) ==
LOC: ER 17:00
DX: B34.9 Viral infection, unspecified (principal); U07.1 COVID-19; R11.2 Nausea with vomiting, unspecified; I10 Essential (primary) hypertension; E11.9 Type 2 diabetes mellitus without complications; Z79.899 Other long term (current) drug therapy
CPT/HCPCS: 99285; 96374; 71045; 96361; 93005; 84145; 85025; 87040 ×2; 83605; 36415; 80053; 85730; J2405; J7030

== ENCOUNTER 2022-10-02 21:01 | Inpatient (IN) | payer OTHER ==
[~2022-10-02] VITALS: Ht 162.6 cm; Wt 67.6 kg
[~2022-10-02 21:01] MED LIST changes: +IBUP-1953 PO; +ONDA4TAB5 PO
[2022-10-02] MEDS ORDERED: MAG HYDROX/AL HYDROX/SIMETH 30 ML UDC ONE (22:46)
[2022-10-02] MEDS ORDERED: KETOROLAC TROMETHAMINE 15 MG/ML VIAL ONE (22:46)
[2022-10-02] MEDS ORDERED: FAMOTIDINE/PF INJ 20 MG/2 ML VIAL IV ONE ×2 (22:47→23:00)
[2022-10-02] MEDS ORDERED: ONDANSETRON HCL/PF 4 MG/2 ML VIAL ONE (22:47)
--- NOTE | 2022-10-02 22:52 | NUR ---
PT JOANA GANDHI [phone] FROM HOME FOR N/V/ & ABD PAIN X2 DAYS
--- NOTE | 2022-10-02 22:53 | NUR ---
IV ACCESS ESTABLISHED ON RAC 20G
--- NOTE | 2022-10-02 22:53 | NUR ---
URINE SAMPLE COLLECTED AND SENT TO LAB
[2022-10-02] MEDS ORDERED: IV NS 0.9% 1,000 ML BAG IV ONE (23:00)
[2022-10-02] MEDS ORDERED: KETOROLAC TROMETHAMINE INJ 30 MG/ML VIAL IV ONE (23:00)
[2022-10-02] MEDS ORDERED: LIDOCAINE VISCOUS 2% UD 15 ML UDC MM ONE (23:00)
[2022-10-02] MEDS ORDERED: ONDANSETRON HCL/PF 4 MG/2 ML VIAL IVP ONE (23:00)
[2022-10-02] MEDS ORDERED: MAG HYDROX/AL HYDROX/SIMETH 30 ML UDC PO ONE (23:00)
[2022-10-02 23:06] LABS: HEMOGLOBIN 11.6 g/dL (11.5-14.8); WHITE BLOOD COUNT (AUTO) 20.8 K/uL (4.3-11.0)
[2022-10-02 23:10] LABS: BILIRUBIN,URINE NEGATIVE (NEGATIVE); COLOR,URINE YELLOW (YELLOW); LEUKOCYTE ESTERASE ,URINE 2+ (NEGATIVE); NITRITE, URINE POSITIVE (NEGATIVE); PROTEIN,URINE NEGATIVE (NEGATIVE); UGLUCOSE NEGATIVE (NEGATIVE); UROBILINOGEN,URINE 0.2 EU/dL (0.2)
[2022-10-02] MEDS ORDERED: LIDOCAINE VISCOUS 2% UD 15 ML UDC ONE (23:10)
[2022-10-02 23:19] LABS: BASOPHILS # (AUTO) 0.1 K/uL (0.0-0.2); BASOPHILS % (AUTO) 0.3 % (0.0-2.0); EOSINOPHILS % (AUTO) 0.1 % (0.0-6.0); HEMATOCRIT 36 % (33-45); LYMPHOCYTES % (AUTO) 4.8 % (20.0-44.0); MEAN CORPUSCULAR HGB CONC 33 g/dl (31.0-36.0); MEAN CORPUSCULAR VOLUME 85 fL (82-100); MONOCYTES # (AUTO) 1.8 K/uL (0.1-1.30); MONOCYTES % (AUTO) 8.6 % (2.0-12.0); NEUTROPHILS # (AUTO) 17.9 K/uL (1.8-8.9); NEUTROPHILS % (AUTO) 86.2 % (43.0-81.0); PLATELET COUNT (AUTO) 285 K/uL (150-450); RED BLOOD CELL COUNT(AUTO) 4.22 MIL/uL (4.0-5.2)
[2022-10-02 23:33] LABS: ALBUMIN 2.8 g/dL (3.4-5.0); BILIRUBIN,DIRECT 0.2 mg/dL (0.0-0.2); BILIRUBIN,TOTAL 0.6 mg/dL (0.2-1.0); CALCIUM, SERUM 9.5 mg/dL (8.5-10.1); CREATININE 0.8 mg/dL (0.6-1.3); POTASSIUM 4.1 mmol/L (3.5-5.1); TOTAL PROTEIN, SERUM 6.8 g/dL (6.4-8.2)
[2022-10-02 23:39] LABS: BACTERIA,URINE Few /HPF (None Seen); RBC,URINE 0-2 /HPF (0-2); SQUAMOUS EPITHELIAL CELL,UR Many /HPF (None Seen); WBC,URINE 0-2 /HPF (0-3)
[2022-10-03] MEDS ORDERED: VANCOMYCIN 1 GM in IV D5W 250 ML IV ONE (00:30)
[2022-10-03] MEDS ORDERED: CEFEPIME 1 GM in IV D5W 50 ML IV ONE (00:30)
[2022-10-03] MEDS ORDERED: VANCOMYCIN 1 GM VIAL ONE (00:59)
[2022-10-03] MEDS ORDERED: CEFEPIME 1 GM VIAL ONE ×3 (00:59→06:09)
[2022-10-03] MEDS ORDERED: IV NS 0.9% 1,000 ML BAG IV ONE (01:00)
--- NOTE | 2022-10-03 01:45 | NUR ---
auth number for transportation: [id number]
--- NOTE | 2022-10-03 01:58 | NUR ---
DAUGHTER, SANDRA: [phone]
[2022-10-03] MEDS ORDERED: MORPHINE SULFATE INJ 2 MG/ML DISP.SYRIN IV ONE (02:00)
[2022-10-03] MEDS ORDERED: MORPHINE SULFATE INJ 4 MG/ML DISP.SYRIN ONE (02:48)
[2022-10-03] MEDS ORDERED: ONDANSETRON HCL/PF 4 MG/2 ML VIAL IVP PRN (03:30)
[2022-10-03] MEDS ORDERED: ENOXAPARIN SODIUM 40 MG/0.4 ML DISP.SYRIN SQ SCH (03:30)
[2022-10-03] MEDS ORDERED: Z GUARD REMEDY 4 OZ OINT TP PRN (03:30)
[2022-10-03] MEDS ORDERED: MAGNESIUM HYDROXIDE 30 ML UDC PO PRN (03:30)
[2022-10-03] MEDS ORDERED: DEXTROSE 50%-WATER 50 ML DISP.SYRIN IV PRN (03:30)
[2022-10-03] MEDS: ACETAMINOPHEN 325 MG TABLET PO PRN ×3 (03:33→17:01)
--- NOTE | 2022-10-03 04:45 | NUR ---
REPORT GIVEN TO 3W DENISHA KU
--- NOTE | 2022-10-03 04:56 | NUR ---
PT TRANSPORTED VIA ACLS TO 3 ROOM 322-1
[2022-10-03] MEDS ORDERED: CEFEPIME 2 GM in IV D5W 100 ML IV SCH (05:00)
--- NOTE | 2022-10-03 05:00 | NUR ---
PANEL SAW OPERATORCLINICAL NEUROPSYCHOLOGIST NOTES REPORT RECEIVED FROM NURSE HUMPHRIES. PATIENT WAS TRANSFERRED FROM ER VIA [facility], WITH NO SIGNS OF DISTRESS. ORIENTED PATIENT TO ROOM SET UP AND EDUCATED PATIENT ON THE USE OF CALL LIGHT. VS TAKEN, STABLE AND RECORDED. BP 91/50; HR 91; RR 20; TEMP 99.9; AND O2 SAT 58%. SKIN ASSESSMENT DONE AND SKIN IS INTACT. ALL BELONGING LIST SIGNED. WILL CONTINUE TO MONITOR AND REASSESS FOR ANY CHANGES AND WILL CARRY OUT ANY ONGOING AND ACTIVE MD ORDERS.
--- NOTE | 2022-10-03 05:26 | NUR ---
left a message for the daughter with room number
[2022-10-03] MEDS: IV NS 0.9% 1,000 ML IV PRN (05:41)
[2022-10-03 06:36] LABS: BASOPHILS % (AUTO) 0.1 % (0.0-2.0); EOSINOPHILS % (AUTO) 0.3 % (0.0-6.0); HEMATOCRIT 30 % (33-45); HEMOGLOBIN 9.9 g/dL (11.5-14.8); LYMPHOCYTES # (AUTO) 1.2 K/uL (0.8-4.8); LYMPHOCYTES % (AUTO) 8.1 % (20.0-44.0); MEAN CORPUSCULAR HGB CONC 32 g/dl (31.0-36.0); MEAN CORPUSCULAR VOLUME 86 fL (82-100); MONOCYTES # (AUTO) 1.1 K/uL (0.1-1.30); MONOCYTES % (AUTO) 7.3 % (2.0-12.0); NEUTROPHILS # (AUTO) 12.6 K/uL (1.8-8.9); NEUTROPHILS % (AUTO) 84.2 % (43.0-81.0); PLATELET COUNT (AUTO) 237 K/uL (150-450); RED BLOOD CELL COUNT(AUTO) 3.55 MIL/uL (4.0-5.2); WHITE BLOOD COUNT (AUTO) 14.9 K/uL (4.3-11.0)
[2022-10-03] MEDS: BLOOD SUGAR DIAGNOSTIC 1 EACH STRIP IN SCH ×4 (06:40→21:43)
[2022-10-03] MEDS: INSULIN REGULAR, HUMAN 100 UNIT/ML 3 ML VIAL SQ PRN ×4 (06:40→21:56)
--- NOTE | 2022-10-03 06:41 | NUR ---
RN NOTES-REFUSED INSULIN BS LEVEL IS 133. R-INSULIN COVERAGE PER SLIDING SCALE IS 2 UNITS SQ BUT PT REFUSED. WILL ENDORSE TO THE NEXT SHIFT.
[2022-10-03 07:02] VITALS: BP 91/50
--- NOTE | 2022-10-03 07:27 | NUR ---
INTERNET MARKETING SPECIALIST OPENING NOTES RECEIVED PATIENT IN BED, AWAKE. A/O X 4, ABLE TO MAKE NEEDS KNOWN. NO C/O PAIN/DISCOMFORT AT THIS TIME. ON ROOM AIR, TOLERATING WELL, NO SIGNS OF ACUTE RESPIRATORY DISTRESS. ON CHANGE DIRECTOR WITH CURRENT READING OF SR, HR-95. NO SIGNS OF CARDIAC DISTRESS. IV ACCESS ON RAC #20G WITH ONGOING IVF OF NS AT 75ML/HR, INFUSING WELL. SAFETY MEASURES IN PLACE: BED LOCKED AND IN LOWEST POSITION, CALL LIGHT AND TRAY TABLE WITHIN EASY REACH, SIDE RAILS UP X 2. WILL CONTINUE TO MONITOR.
[2022-10-03] MEDS: PANTOPRAZOLE 40 MG TABLET.DR PO SCH (07:48)
--- NOTE | 2022-10-03 07:53 | NUR ---
ACROBATIC DANCER CLOSING NOTES PATIENT AWAKE IN BED RESTING. APPEARS COMFORTABLE. A/O X 4. NO S/S OF PAIN AT THIS TIME. ON RA, BREATHING EVEN AND UNLABORED, NO DISTRESS OR SOB NOTED. IV ACCESS RAC #20G RUNNING NS @ 75ML/HR, FLUSHING WELL. PATIENT WITH EXTERNAL ASPHALT PLANT WORKER WITH CURRENT READING OF SR @ 82. SAFETY MEASURES MAINTAINED WITH BED ON LOWEST AND LOCKED POSITION. BED ALARM ON. SIDE RAILS UP. CALL LIGHT AND TRAY WITHIN REACH. WILL ENDORSE TO THE NEXT SHIFT.
[2022-10-03 08:00] VITALS: BP 90/66
[2022-10-03 09:34] LABS: CALCIUM, SERUM 8.3 mg/dL (8.5-10.1); CREATININE 0.7 mg/dL (0.6-1.3); MAGNESIUM 1.9 mg/dL (1.8-2.4); POTASSIUM 4.3 mmol/L (3.5-5.1)
--- NOTE | 2022-10-03 11:15 | NUR ---
RN NOTES CHECKED PATIENT'S TEMP 100.3F, NO C/O PAIN AND DISCOMFORT, TYLENOL 650MG PO PRN GIVEN. WILL CONTINUE TO MONITOR.
[2022-10-03] MEDS ORDERED: IBUP-1488 PO (11:35)
[2022-10-03] MEDS ORDERED: INSU100I26 SQ (11:35)
[2022-10-03] MEDS ORDERED: BENA20TA9 PO (11:35)
[2022-10-03 12:00] VITALS: BP 106/52
[2022-10-03] MEDS ORDERED: ZOSYN IVPB 3.375 G in IV D5W 50ml IV ONE (12:30)
[2022-10-03] MEDS ORDERED: VANCOMYCIN HCL 0.75 GM in IV D5W 250 ML IV SCH (13:00)
[2022-10-03] MEDS: MORPHINE SULFATE INJ 2 MG/ML DISP.SYRIN IV PRN (13:59)
--- NOTE | 2022-10-03 14:02 | NUR ---
RN NOTES PATIENT VERBALIZED THAT SHE HAS GENERALIZED BODY PAIN AND RIGHT LOWER ABDOMINAL PAIN WITH SCALE OF 8/10, MORPHINE 2MG/ML IV PRN GIVEN AT 1359. WILL CONTINUE TO MONITOR.
[2022-10-03 16:00] VITALS: BP 105/53
[2022-10-03] MEDS: PIPERACILLIN /TAZOBACTAM 3.375 G in IV D5W 100 ML IV SCH (17:01)
--- NOTE | 2022-10-03 18:55 | NUR ---
PRN OCCUPATIONAL THERAPIST CLOSING NOTES PATIENT RESTING IN BED. A/O X 4, ABLE TO MAKE NEEDS KNOWN. NO C/O PAIN/DISCOMFORT AT THIS TIME. ON ROOM AIR, TOLERATING WELL, NO SIGNS OF ACUTE RESPIRATORY DISTRESS. ON RADIOLOGY RN WITH CURRENT READING OF SINUS TACHY, HR- 105. NO SIGNS OF CARDIAC DISTRESS. IV ACCESS ON RAC #20G WITH ONGOING IVF OF NS AT 75ML/HR, INFUSING WELL. NEEDS ATTENDED. SAFETY MEASURES IN PLACE: BED LOCKED AND IN LOWEST POSITION, CALL LIGHT AND TRAY TABLE WITHIN EASY REACH, SIDE RAILS UP X 2. WILL ENDORSE MARLO TO MUSHROOM GROWER.
--- NOTE | 2022-10-03 19:30 | NUR ---
MOTOR BUS DRIVER OPENING NOTES PATIENT AWAKE IN BED RESTING. APPEARS COMFORTABLE. A/O X 4. NO S/S OF PAIN AT THIS TIME. ON RA, BREATHING EVEN AND UNLABORED, NO DISTRESS OR SOB NOTED. IV ACCESS RAC #20G RUNNING NS @ 75ML/HR, FLUSHING WELL. PATIENT WITH EXTERNAL ROLE PLAYER WITH CURRENT READING OF SR @ 82. WILL MAINTAIN SAFETY MEASURES WITH BED ON LOWEST AND LOCKED POSITION. BED ALARM ON. SIDE RAILS UP. CALL LIGHT AND TRAY WITHIN REACH. WILL CONTINUE TO MONITOR AND REASSESS FOR ANY CHANGES. WILL CARRY OUT ANY ONGOING AND ACTIVE MD ORDERS.
[2022-10-03 20:00] VITALS: BP 96/51
--- NOTE | 2022-10-03 20:10 | NUR ---
RN NOTES- BLOOD CULTURE RECEIVED BLOOD CULTURE RESULT FROM THE LABORATORY. PER JARETT, THE RESULT IS FOLLOWS: ONE BOTTLE OF SET ANAEROBIC BOTTLE, GRAM NEGATIVE RODS. WILL INFORM THE DOCTOR.
[2022-10-03] MEDS: ENOXAPARIN SODIUM 40 MG/0.4 ML DISP.SYRIN SQ SCH (21:04)
[2022-10-04] VITALS: BP 114/59
[2022-10-04] MEDS: MORPHINE SULFATE INJ 2 MG/ML DISP.SYRIN IV PRN ×5 (01:07→20:08)
--- NOTE | 2022-10-04 01:07 | NUR ---
RN NOTES- MORPHINE GIVEN PATIENT C/O OF RIGHT ABDOMINAL PAIN AND SHOULDERS WITH THE SCALE OF 8/10. MORPHINE 2MG GIVEN PRN. WILL CONTINUE TO MONITOR THE PATIENT.
[2022-10-04] MEDS: PIPERACILLIN /TAZOBACTAM 3.375 G in IV D5W 100 ML IV SCH ×2 (01:19→09:24)
[2022-10-04] MEDS: IV NS 0.9% 1,000 ML IV PRN (01:27)
[2022-10-04] MEDS: ACETAMINOPHEN 325 MG TABLET PO PRN ×2 (02:19→16:04)
--- NOTE | 2022-10-04 02:19 | NUR ---
RN NOTES-TYLENOL GIVEN PATIENT'S TEMPERATURE LEVEL IS 101.6. TYLENOL 650MG GIVEN PRN. WILL CONTINUE TO MONITOR THE PATIENT.
[2022-10-04 04:00] VITALS: BP 140/68
--- NOTE | 2022-10-04 05:11 | NUR ---
RN NOTES-MORPHINE GIVEN PATIENT C/O OF RIGHT ABDOMINAL PAIN AND SHOULDERS WITH THE SCALE OF 9/10. MORPHINE 2MG GIVEN PRN. WILL CONTINUE TO MONITOR THE PATIENT.
[2022-10-04 06:22] LABS: BASOPHILS % (AUTO) 0.4 % (0.0-2.0); EOSINOPHILS % (AUTO) 0.2 % (0.0-6.0); HEMATOCRIT 30 % (33-45); LYMPHOCYTES # (AUTO) 1.1 K/uL (0.8-4.8); LYMPHOCYTES % (AUTO) 8.6 % (20.0-44.0); MEAN CORPUSCULAR HGB CONC 33 g/dl (31.0-36.0); MEAN CORPUSCULAR VOLUME 85 fL (82-100); MONOCYTES # (AUTO) 1.1 K/uL (0.1-1.30); MONOCYTES % (AUTO) 8.5 % (2.0-12.0); NEUTROPHILS # (AUTO) 10.9 K/uL (1.8-8.9); NEUTROPHILS % (AUTO) 82.3 % (43.0-81.0); PLATELET COUNT (AUTO) 251 K/uL (150-450); RED BLOOD CELL COUNT(AUTO) 3.59 MIL/uL (4.0-5.2); WHITE BLOOD COUNT (AUTO) 13.3 K/uL (4.3-11.0)
[2022-10-04 06:30] LABS: CALCIUM, SERUM 8.7 mg/dL (8.5-10.1); CREATININE 0.7 mg/dL (0.6-1.3); POTASSIUM 3.5 mmol/L (3.5-5.1)
[2022-10-04] MEDS: BLOOD SUGAR DIAGNOSTIC 1 EACH STRIP IN SCH ×4 (06:33→21:11)
[2022-10-04] MEDS: INSULIN REGULAR, HUMAN 100 UNIT/ML 3 ML VIAL SQ PRN ×4 (06:42→21:12)
--- NOTE | 2022-10-04 06:53 | NUR ---
JUKEBOX CHECKER CLOSING NOTES PATIENT IN BED SLEEPING. EASILY BE AWAKEN BY VERBAL STIMULI. A/O X 4. ON RA, BREATHING EVEN AND UNLABORED, NO DISTRESS OR SOB NOTED. IV ACCESS RAC #20G RUNNING NS @ 75ML/HR, INFUSING WELL. PATIENT WITH EXTERNAL SOLDERER ASSEMBLER WITH CURRENT READING OF SR @ 90. IV PRN MEDS AND PO MEDS GIVEN. PATIENT ON PUREWICK WITH URINE OUTPUT OF 950cc. SAFETY MEASURES MAINTAINED WITH BED ON LOWEST AND LOCKED POSITION. BED ALARM ON. SIDE RAILS UP. CALL LIGHT AND TRAY WITHIN REACH. WILL ENDORSE TO THE NEXT SHIFT FOR CONTINUITY OF CARE.
[2022-10-04 07:00] VITALS: BP 92/52
--- NOTE | 2022-10-04 07:20 | NUR ---
RN OPENING NOTE RECEIVED PATIENT IN BED,AWAKE,A/O X4, VERBALLY RESPONSIVE AND ABLE TO MAKE NEEDS KNOWN. ON ROOM AIR, NO SOB NOTED, BREATHING EVEN AND UNLABORED. ON TELE MONITORING SHOWING SINUS RHYTHM, HR @ 85. NOTED WITH IV ACCESS ON RIGHT AC #20G, INTACT AND PATENT WITH NS @ 75 ML/HR RUNNING. SAFETY MEASURE IN PLACE. BED IN LOW AND LOCKED POSITION, SIDE RAILS UP X2, CALL LIGHT PLACED WITHIN EASY REACH. WILL CONTINUE TO MONITOR PATIENT.
[2022-10-04] MEDS: PANTOPRAZOLE 40 MG TABLET.DR PO SCH (08:13)
--- NOTE | 2022-10-04 11:56 | NUR ---
RN NOTE MORPHINE 2 MG IVP GIVEN FOR C/O ABDOMINAL PAIN. WILL CONTINUE TO MONITOR AND ASSESS PATIENT.
[2022-10-04 12:00] VITALS: BP 119/54
[2022-10-04] MEDS: MEROPENEM 1 G in IV NS 0.9% 100 ML IV SCH ×2 (12:55→20:58)
--- NOTE | 2022-10-04 13:20 | NUR ---
RN NOTE ZOFRAN 4MG IVP GIVEN FOR NAUSEA AND VOMITING.
[2022-10-04 16:00] VITALS: BP 137/74
--- NOTE | 2022-10-04 16:00 | NUR ---
RN NOTE MORPHINE 2 MG IVP GIVEN FOR C/O ABDOMINAL PAIN. WILL CONTINUE TO MONITOR AND ASSESS PATIENT.
--- NOTE | 2022-10-04 16:00 | NUR ---
DENISHA NOTE PATIENT PICKED UP FOR CT RIGHT SHOULDER VIA BED. Addendum: 10/04/22 at 1610 by OLENA CONNOR RN *PIETER RIGGINS
--- NOTE | 2022-10-04 18:35 | NUR ---
RN CLOSING NOTE PATIENT IN BED, ASLEEP, EASILY AWAKENED, A/O X4, NO SIGNS OF ACUTE DISTRESS NOTED. VERBALLY RESPONSIVE AND ABLE TO MAKE NEEDS KNOWN. REMAINS STABLE ON ROOM AIR, NO SOB NOTED, BREATHING EVEN AND UNLABORED. STILL WITH C/O PAIN ON THE ABDOMINAL AREA. MEDICATED FOR PAIN NEEDED. CONTINUE ON TELE MONITORING SHOWING SINUS RHYTHM, HR @ 93. NOTED WITH IV ACCESS ON RIGHT AC #20G, INTACT AND PATENT WITH NS @ 75 ML/HR RUNNING. SAFETY MEASURE IN PLACE. BED IN LOW AND LOCKED POSITION, SIDE RAILS UP X2, CALL LIGHT PLACED WITHIN EASY REACH. WILL ENDORSE TO NEXT SHIFT FOR CONTINUITY OF CARE.
--- NOTE | 2022-10-04 19:45 | NUR ---
RN Opening Notes Received pt in bed, awake, with family at bedside. AOx4, able to make needs known. On RA and tolerating well. No SOB noted. No s/sx of respiratory distress noted. Tele monitor detects SR with rate of 90. IV access in RAC #20G running NS @ 75 mL/hr. Safety precautions in place: bed in lowest, locked position, siderails upX2, and brakes on. Table and call light within reach. All needs met at this time.
[2022-10-04 20:00] VITALS: BP 103/56
--- NOTE | 2022-10-04 20:09 | NUR ---
RN Notes Administered morphine for pain per MD order. VS WNL.
[2022-10-04] MEDS: ENOXAPARIN SODIUM 40 MG/0.4 ML DISP.SYRIN SQ SCH (21:00)
--- NOTE | 2022-10-04 21:41 | NUR ---
RN Notes Patient requested zofran. After administering zofran, patient told nurse "I am going to need 50 mg of benadryl IV because zofran makes me itchy." Dr. Haynes made aware. No new orders at this time. Addendum: 10/04/22 at 2159 by NILDA HOUSE RN incorrect patient. please disregard
[2022-10-05] VITALS (7 sets, daily range): BP systolic 110–145; BP diastolic 62–79
[2022-10-05] MEDS: IV NS 0.9% 1,000 ML IV PRN ×2 (00:07→21:29)
[2022-10-05] MEDS: ACETAMINOPHEN 325 MG TABLET PO PRN ×3 (03:55→18:47)
--- NOTE | 2022-10-05 03:55 | NUR ---
DENISHA Notes Administered tylenol for headache. Addendum: 10/05/22 at 0400 by NILDA HOUSE RN patient said her pain is coming back and she would prefer morphine.
[2022-10-05] MEDS: MORPHINE SULFATE INJ 2 MG/ML DISP.SYRIN IV PRN (03:59)
--- NOTE | 2022-10-05 04:00 | NUR ---
RN Notes Administered morphine for pain per MD order. VS WNL.
[2022-10-05] MEDS: MEROPENEM 1 G in IV NS 0.9% 100 ML IV SCH ×3 (05:09→20:11)
[2022-10-05 06:10] LABS: BASOPHILS % (AUTO) 0.4 % (0.0-2.0); EOSINOPHILS % (AUTO) 1.7 % (0.0-6.0); HEMATOCRIT 28 % (33-45); HEMOGLOBIN 9.4 g/dL (11.5-14.8); LYMPHOCYTES # (AUTO) 1.6 K/uL (0.8-4.8); LYMPHOCYTES % (AUTO) 15.7 % (20.0-44.0); MEAN CORPUSCULAR HGB CONC 33 g/dl (31.0-36.0); MEAN CORPUSCULAR VOLUME 85 fL (82-100); MONOCYTES # (AUTO) 0.9 K/uL (0.1-1.30); MONOCYTES % (AUTO) 9.5 % (2.0-12.0); NEUTROPHILS # (AUTO) 7.2 K/uL (1.8-8.9); NEUTROPHILS % (AUTO) 72.7 % (43.0-81.0); PLATELET COUNT (AUTO) 275 K/uL (150-450); RED BLOOD CELL COUNT(AUTO) 3.35 MIL/uL (4.0-5.2); WHITE BLOOD COUNT (AUTO) 9.9 K/uL (4.3-11.0)
[2022-10-05 06:25] LABS: CALCIUM, SERUM 8.3 mg/dL (8.5-10.1); CREATININE 0.7 mg/dL (0.6-1.3); POTASSIUM 3.7 mmol/L (3.5-5.1)
[2022-10-05] MEDS: BLOOD SUGAR DIAGNOSTIC 1 EACH STRIP IN SCH ×4 (06:31→21:34)
[2022-10-05] MEDS: INSULIN REGULAR, HUMAN 100 UNIT/ML 3 ML VIAL SQ PRN ×4 (06:32→21:35)
--- NOTE | 2022-10-05 06:44 | NUR ---
RN Closing Notes Pt in bed, asleep, awakens to verbal stimuli. AOx4, able to make needs known. On RA and tolerating well. No SOB noted. No s/sx of respiratory distress noted. Tele monitor detects SR with rate of 90. IV access in RAC #20G running NS @ 75 mL/hr. All orders carried out. All needs met. Pt kept clean and dry. Treated pain throughout shift. Safety precautions in place: bed in lowest, locked position, siderails upX2, and brakes on. Table and call light within reach. Will endorse to oncoming shift for MARLO.
--- NOTE | 2022-10-05 07:15 | NUR ---
PRIVATE DUTY AIDE OPENING NOTES RECEIVED PATIENT LYING IN BED, ASLEEP, EASILY AWAKENED, A/O X4, BULGARIAN SPEAKING, ON ROOM AIR WITH NO DIFFICULTY BREATHING NOTED, NO SIGNS OF ACUTE DISTRESS NOTED.ABLE TO MAKE NEEDS FULLY KNOWN. PAIN IS CONTROLLED AT THIS MOMENT PER PATIENT, PATIENT KNOWS HOW TO USE CALL LIGHT FOR HELP. ON TELE MONITORING SHOWING SINUS RHYTHM WITH 84 BPM. WITH IV ACCESS ON RIGHT AC #20G, INTACT AND PATENT WITH NS @ 75 ML/HR RUNNING AND FLUSHING WELL. WITH PUREWICK ATTACHED TO WALL SUCTION, DRAINING YELLOW URINE. SAFETY MEASURES IN PLACE: BED IN LOWEST AND LOCKED POSITION, SIDE RAILS UP X2, CALL LIGHT AND TRAY TABLE WITHIN EASY REACH. WILL CONTINUE PLAN OF CARE.
[2022-10-05] MEDS: PANTOPRAZOLE 40 MG TABLET.DR PO SCH (08:00)
--- NOTE | 2022-10-05 08:16 | NUR ---
RN NOTES - LOW GRADE FEVER PATIENT'S TEMP IS 100 F, GIVEN TYLENOL 350 MG 2 TABS PO, COOLING MEASURES IMPLEMENTED. WILL CONTINUE TO MONITOR.
--- NOTE | 2022-10-05 09:00 | NUR ---
RN NOTES - TEMPERATURE WENT DOWN TO 99.6 F, DENIES PAIN AT THIS TIME. COOLING MEASURES AND MONITORING WILL BE CONTINUED
--- NOTE | 2022-10-05 12:05 | NUR ---
RN NOTES - SECURITY OFFICER KEH ORDERED TO GIVE PT MILK OF MAGNESIA PT IS CLAIMING THAT SHE HASNT PASSED STOOL FOR 4 DAYS BUT DAUGHTER SAID IT ISN'T TRUE. WILL GIVE MOM 30 ML PO ORDERED.
[2022-10-05] MEDS ORDERED: MAGNESIUM HYDROXIDE 30 ML UDC NG PRN (12:30)
[2022-10-05] MEDS: DOCUSATE SODIUM LIQ 100 MG/10 ML UDC NG SCH (13:19)
--- NOTE | 2022-10-05 18:24 | NUR ---
SPLASH LINE OPERATOR CLOSING NOTES PATIENT LYING IN BED, AWAKE, A/O X4 WITH SISTER AT BEDSIDE, EMIRATI SPEAKING, STILL ON ROOM AIR WITH NO DIFFICULTY BREATHING NOTED, NO SIGNS OF ACUTE DISTRESS NOTED. AFEBRILE THIS TIME, NO COMPLAINTS OF PAIN OR DISCOMFORT. STILL ON TELE MONITORING SHOWING SINUS RHYTHM WITH 96 BPM. NEW IV ACCESS ON LEFT FOREARM #22G, INTACT AND PATENT WITH NS @ 75 ML/HR RUNNING AND FLUSHING WELL. STILL WITH PUREWICK ATTACHED TO WALL SUCTION, DRAINING YELLOW URINE. ALL NEED MET, ALL DUE MEDS GIVEN. SAFETY MEASURES MAINTAINED: BED IN LOWEST AND LOCKED POSITION, SIDE RAILS UP X2, CALL LIGHT AND TRAY TABLE WITHIN EASY REACH. WILL ENDORSE TO SOFTWARE ENGINEER NURSE.
--- NOTE | 2022-10-05 18:50 | NUR ---
RN NOTES - SON AT BEDSIDE ASKING FOR TYLENOL FOR THE PT, 650 MG GIVEN, TEMP IS 99 DEGREES F, WILL ENDORSE TO THE BACK OFFICE MEDICAL ASSISTANT NURSE.
--- NOTE | 2022-10-05 19:57 | NUR ---
LOCKSTITCH MACHINE OPERATOR OPENING NOTES - RECEIVED PATIENT AWAKE, FAMILY PRESENT IN ROOM. A/O X3, FILIPINO SPEAKING. BREATHING EVEN AND NON-LABORED ON ROOM AIR. NOT IN APPARENT DISTRESS. NO C/O PAIN AT THIS TIME. PROVIDED WARM BLANKETS SINCE THE PATIENT IS FREEZING. ON TELE MONITOR READING SINUS RHYTHM AT 83 BPM. HAS LEFT FOREARM IV ACCESS #22G WITH NS RUNNING AT 75 ML/HR. NO S/S OF INFILTRATION NOTED. ON PUREWICK CONNECTED TO CONTINUOUS SUCTION. SAFETY PRECAUTIONS IN PLACE: BED LOCKED AND IN LOW POSITION, SIDE RAILS UP X2, CALL LIGHT WITHIN REACH. WILL CONTINUE PLAN OF CARE.
[2022-10-05] MEDS: ENOXAPARIN SODIUM 40 MG/0.4 ML DISP.SYRIN SQ SCH (20:12)
--- NOTE | 2022-10-05 20:30 | NUR ---
PATIENT WAS NOTED WITH MILD FEVER OF 100.4. RENDERED COLD SPONGE BATH TO HELP LOWER DOWN TEMP, PRN TYLENOL NOT DUE YET.
[2022-10-06] VITALS: BP 138/77
[2022-10-06 04:00] VITALS: BP 129/65
[2022-10-06 04:06] VITALS: BP 129/65
[2022-10-06] MEDS: MEROPENEM 1 G in IV NS 0.9% 100 ML IV SCH ×2 (04:31→12:08)
[2022-10-06] MEDS: ACETAMINOPHEN 325 MG TABLET PO PRN ×2 (04:32→16:58)
--- NOTE | 2022-10-06 04:40 | NUR ---
GAVE ICE CHIPS TO PATIENT AND ADMINISTERED PRN TYLENOL 650MG TO PREVENT HYPERTHERMIA.
[2022-10-06 05:52] LABS: BASOPHILS % (AUTO) 0.3 % (0.0-2.0); EOSINOPHILS % (AUTO) 3.2 % (0.0-6.0); HEMATOCRIT 30 % (33-45); HEMOGLOBIN 9.7 g/dL (11.5-14.8); LYMPHOCYTES # (AUTO) 1.8 K/uL (0.8-4.8); LYMPHOCYTES % (AUTO) 23.4 % (20.0-44.0); MEAN CORPUSCULAR HGB CONC 33 g/dl (31.0-36.0); MEAN CORPUSCULAR VOLUME 84 fL (82-100); MONOCYTES % (AUTO) 12.8 % (2.0-12.0); NEUTROPHILS # (AUTO) 4.7 K/uL (1.8-8.9); NEUTROPHILS % (AUTO) 60.3 % (43.0-81.0); PLATELET COUNT (AUTO) 308 K/uL (150-450); RED BLOOD CELL COUNT(AUTO) 3.52 MIL/uL (4.0-5.2); WHITE BLOOD COUNT (AUTO) 7.8 K/uL (4.3-11.0)
[2022-10-06 05:57] LABS: CALCIUM, SERUM 8.6 mg/dL (8.5-10.1); CREATININE 0.7 mg/dL (0.6-1.3); POTASSIUM 3.7 mmol/L (3.5-5.1)
[2022-10-06] MEDS: BLOOD SUGAR DIAGNOSTIC 1 EACH STRIP IN SCH ×4 (06:37→21:35)
[2022-10-06] MEDS: INSULIN REGULAR, HUMAN 100 UNIT/ML 3 ML VIAL SQ PRN ×4 (06:38→21:36)
--- NOTE | 2022-10-06 06:49 | NUR ---
AUTOMATION MANAGER CLOSING NOTES - PATIENT SLEEPING, EASY TO AROUSE. ABLE TO VERBALIZE NEEDS. NO ACUTE DISTRESS THROUGHOUT THE NIGHT. NO SOB OR NOTED. AFEBRILE. DENIES PAIN AT THIS TIME. ON TELE MONITOR READING SINUS RHYTHM AT 77 BPM. LEFT FOREARM IV ACCESS INTACT, PATENT AND FLUSHING. CLEAR YELLOW URINE OUTPUT NOTED. ALL DUE MEDS GIVEN AND NEEDS ATTENDED. SAFETY MEASURES MAINTAINED. WILL ENDORSE TO NEXT SHIFT FOR MARLO.
--- NOTE | 2022-10-06 07:30 | NUR ---
RN MS NOTES RECEIVED PT ON BED, ASLEEP. ON ROOM AIR, STABLE, NO S/SX OF RESPIRATORY DISTRESS. A0 X3, LITHUANIAN SPEAKING. SKIN INTACT. IV ACCESS ON LFA NS @75 ML/HR, INTACT AND PATENT. WITH BATHROOM PRIVILEGES, ON PUREWICK. NO SIGNS OF PAIN OR DISCOMFORT. SAFETY MEASURES IN PLACE: BED LOCKED AND IN LOWEST POSITION, HOB ELEVATED, SIDE RAILS UP X2, CALL LIGHT WITHIN REACH. WILL CONTINUE OT MONITOR.
[2022-10-06] MEDS: DOCUSATE SODIUM LIQ 100 MG/10 ML UDC NG SCH (08:16)
[2022-10-06] MEDS: PANTOPRAZOLE 40 MG TABLET.DR PO SCH (08:16)
[2022-10-06] MEDS: CEFTRIAXONE 1 G in IV D5W 50 ML IV SCH (16:36)
[2022-10-06] MEDS: IV NS 0.9% 1,000 ML IV PRN (16:45)
[2022-10-06 16:51] VITALS: BP 133/75
--- NOTE | 2022-10-06 18:30 | NUR ---
PATIENT AWAKE IN BED, A/Ox3 ABLE TO MAKE NEEDS KNOWN. STABLE ON ROOM AIR, NO S/S OF RESPIRATORY DISTRESS. IV ACCESS ON LFA 22G, RUNNING AT 75 ML/HR. NO S/S OF PAIN OR DISCOMFORT. SAFETY MEASURES MAINTAINED: BED LOCKED AND IN LOWEST POSITION, HOB ELEVATED, SIDE RAILS UPx2, CALL LIGHT WITHIN REACH. WILL ENDORSE TO NEXT SHIFT.
--- NOTE | 2022-10-06 19:28 | NUR ---
RN Opening Notes Received pt laying in bed, awake, with family at bedside. AOx4, turkmen speaker and able to make needs known. On RA and tolerating well. No SOB noted. No s/sx of respiratory distress noted. IV access in LFA #22G running NS @ 75 mL/hr. Safety precautions in place: bed in lowest, locked position, siderails upX2, and brakes on. Table and call light within reach. All needs met at this time.
[2022-10-06 20:00] VITALS: BP 119/69
[2022-10-06] MEDS: ENOXAPARIN SODIUM 40 MG/0.4 ML DISP.SYRIN SQ SCH (21:27)
[2022-10-07] VITALS: BP 137/68
[2022-10-07 04:00] VITALS: BP 137/71
[2022-10-07 05:55] LABS: BASOPHILS % (AUTO) 0.4 % (0.0-2.0); EOSINOPHILS % (AUTO) 3.4 % (0.0-6.0); HEMATOCRIT 31 % (33-45); LYMPHOCYTES # (AUTO) 2.1 K/uL (0.8-4.8); LYMPHOCYTES % (AUTO) 21.2 % (20.0-44.0); MEAN CORPUSCULAR HGB CONC 33 g/dl (31.0-36.0); MEAN CORPUSCULAR VOLUME 84 fL (82-100); MONOCYTES # (AUTO) 1.1 K/uL (0.1-1.30); NEUTROPHILS # (AUTO) 6.3 K/uL (1.8-8.9); PLATELET COUNT (AUTO) 359 K/uL (150-450); RED BLOOD CELL COUNT(AUTO) 3.62 MIL/uL (4.0-5.2); WHITE BLOOD COUNT (AUTO) 9.8 K/uL (4.3-11.0)
[2022-10-07 06:07] LABS: CALCIUM, SERUM 8.9 mg/dL (8.5-10.1); CREATININE 0.5 mg/dL (0.6-1.3); POTASSIUM 3.9 mmol/L (3.5-5.1)
[2022-10-07] MEDS: BLOOD SUGAR DIAGNOSTIC 1 EACH STRIP IN SCH ×4 (06:30→21:27)
[2022-10-07] MEDS: INSULIN REGULAR, HUMAN 100 UNIT/ML 3 ML VIAL SQ PRN ×4 (06:33→21:29)
--- NOTE | 2022-10-07 06:47 | NUR ---
RN Closing Notes Pt laying in bed, asleep, awakens to verbal stimuli. AOx4, occitan speaker and able to make needs known. On RA and tolerating well. No SOB noted. No s/sx of respiratory distress noted. IV access in LFA #22G running NS @ 75 mL/hr. All orders carried out. All needs met. Pt kept clean and dry. Safety precautions in place: bed in lowest, locked position, siderails upX2, and brakes on. Table and call light within reach. Will endorse to oncoming shift for MARLO.
--- NOTE | 2022-10-07 07:30 | NUR ---
COOK FISHING VESSEL OPENING NOTES RECEIVED PATIENT ON BED AWAKE MAORI SPEAKER , A/O X4 , VERBALLY RESPONSIVE , ROOM AIR WIT NO SOB OR DISTRESS NOTED , ON TELE MONITOR READING SR 70 , NO C/O OF PAIN AND DISCOMFORT , WITH PUREWICK , IV ACCESS ON LEFT FA #22WITH NS @75 ML /HR , SR UP X2 , SAFETY MEASURES PROVIDED , CALL LIGHT WITHIN REACH AND WILL MONITOR FOR ANY CHANGES .
[2022-10-07 08:00] VITALS: BP 148/82
[2022-10-07] MEDS: PANTOPRAZOLE 40 MG TABLET.DR PO SCH (08:01)
[2022-10-07] MEDS: DOCUSATE SODIUM LIQ 100 MG/10 ML UDC NG SCH (08:43)
[2022-10-07] MEDS: ACETAMINOPHEN 325 MG TABLET PO PRN (08:43)
[2022-10-07 12:00] VITALS: BP 148/77
[2022-10-07] MEDS: CEFTRIAXONE 1 G in IV D5W 50 ML IV SCH (15:08)
[2022-10-07 16:00] VITALS: BP 138/72
[2022-10-07] MEDS: IV NS 0.9% 1,000 ML IV PRN (18:11)
--- NOTE | 2022-10-07 18:38 | NUR ---
CITY AUDITOR CLOSING NOTES PATIENT ON BED AWAKE KYRGYZ SPEAKER , A/O X4 , VERBALLY RESPONSIVE , ROOM AIR WIT NO SOB OR DISTRESS NOTED , ON TELE MONITOR READING SR 70 , C/O OF PAIN AND DISCOMFORT OF HEAD ACHE AND TYLENOL GIVEN ORDERED , WITH PUREWICK WITH YELLOW COLORED URINE OUTPUT OF 1100 CC , ALL DUE MEDS GIVEN ORDERED , IV ACCESS ON LEFT FA #22WITH NS @75 ML /HR , SR UP X2 , SAFETY MEASURES PROVIDED , CALL LIGHT WITHIN REACH AND WILL MONITOR FOR ANY CHANGES .
[2022-10-07 20:00] VITALS: BP 142/80
--- NOTE | 2022-10-07 20:39 | NUR ---
CORRECTIONAL FACILITY PSYCHIATRIST OPENING NOTES RECEIVED PATIENT IN BED, ON MODERATE HIGH BACK REST POSITION A/O X 3 PASHTO SPEAKING. ON ROOM AIR SATURATING WELL. PATIENT IS AMBULATORY WITH FWW AND ASSISTANCE. ON CONSISTENT CARB ABLE TO SWALLOW WHOLE PILL. WITH IV ACCESS AT LFA #22G WITH NSS AT 75ML/HR INFUSING WELL. NO S/S OF PAIN OR ANY DISCOMFORT AT THIS TIME. PATIENT IS AFEBRILE AT THIS TIME. KEPT BED ON LOWER LOCK POSITION, KEPT SIDE RAILS UP X 3 ALL THE TIME. KEPT CALL LIGHT WITHIN AT REACH. WILL CONTINUE TO MONITOR FOR MARLO.
[2022-10-07] MEDS: ENOXAPARIN SODIUM 40 MG/0.4 ML DISP.SYRIN SQ SCH (21:21)
[2022-10-08] VITALS: BP 162/75
[2022-10-08 04:00] VITALS: BP 124/70
[2022-10-08] MEDS: IV NS 0.9% 1,000 ML IV PRN ×2 (04:59→17:27)
[2022-10-08 06:06] LABS: BASOPHILS # (AUTO) 0.1 K/uL (0.0-0.2); BASOPHILS % (AUTO) 0.6 % (0.0-2.0); EOSINOPHILS % (AUTO) 3.3 % (0.0-6.0); HEMATOCRIT 31 % (33-45); HEMOGLOBIN 10.1 g/dL (11.5-14.8); LYMPHOCYTES # (AUTO) 2.3 K/uL (0.8-4.8); LYMPHOCYTES % (AUTO) 23.6 % (20.0-44.0); MEAN CORPUSCULAR HGB CONC 33 g/dl (31.0-36.0); MEAN CORPUSCULAR VOLUME 84 fL (82-100); MONOCYTES # (AUTO) 1.2 K/uL (0.1-1.30); MONOCYTES % (AUTO) 11.7 % (2.0-12.0); NEUTROPHILS % (AUTO) 60.8 % (43.0-81.0); PLATELET COUNT (AUTO) 435 K/uL (150-450); RED BLOOD CELL COUNT(AUTO) 3.63 MIL/uL (4.0-5.2); WHITE BLOOD COUNT (AUTO) 9.8 K/uL (4.3-11.0)
[2022-10-08 06:16] LABS: CALCIUM, SERUM 8.8 mg/dL (8.5-10.1); CREATININE 0.6 mg/dL (0.6-1.3)
--- NOTE | 2022-10-08 06:22 | NUR ---
MATERIAL HANDLER 2ND SHIFT CLOSING NOTES NOTES PATIENT IS IN BED ASLEEP, ON MODERATE HIGH BACK REST POSITION A/O X 3 NORTHERN IRISH SPEAKING. ON ROOM AIR SATURATING WELL. PATIENT IS AMBULATORY WITH FWW AND ASSISTANCE.PATIENT IS ON PUREWICK CONNECTED TO SUCTION MACHINE NOTED URINE OUTPUT OF 1600ML DRAIN. ON CONSISTENT CARB ABLE TO SWALLOW WHOLE PILL. WITH IV ACCESS AT LFA #22G WITH NSS AT 75ML/HR INFUSING WELL. NO S/S OF PAIN OR ANY DISCOMFORT AT THIS TIME.ALL DUE MEDICATIONS GIVEN, ALL NEEDS ATTENDED. PATIENT IS AFEBRILE AT THIS TIME. IF THE PATIENT HAVE FEVER OF >100.4F DO BLOOD CULTURE.PATIENT IS FOR INSERTION OF MIDLINE FOR CONTINUE ANTIBIOTIC AT HOME. KEPT BED ON LOWER LOCK POSITION, KEPT SIDE RAILS UP X 3 ALL THE TIME. KEPT CALL LIGHT WITHIN AT REACH. WILL ENDORSED TO AM SHIFT FOR MARLO.
[2022-10-08 07:00] VITALS: BP 136/81
[2022-10-08] MEDS: BLOOD SUGAR DIAGNOSTIC 1 EACH STRIP IN SCH ×4 (07:35→22:13)
[2022-10-08] MEDS: PANTOPRAZOLE 40 MG TABLET.DR PO SCH (07:40)
--- NOTE | 2022-10-08 07:40 | NUR ---
RN MS OPENING NOTES RECEIVED PATIENT ON BED AWAKE KHMER SPEAKER , A/O X4 , VERBALLY RESPONSIVE , ROOM AIR WITH NO SOB OR DISTRESS NOTED , NO C/O OF PAIN AND DISCOMFORT , NO FEVER , WITH PUREWICK AND ABLE TO GO TO BATHROOM IV ACCESS ON RIGHT HAND #20 WITH NS @75 ML /HR , SR UP X2 , SAFETY MEASURES PROVIDED , CALL LIGHT WITHIN REACH AND WILL MONITOR FOR ANY CHANGES .
[2022-10-08] MEDS: DOCUSATE SODIUM LIQ 100 MG/10 ML UDC NG SCH (08:57)
[2022-10-08 12:00] VITALS: BP 112/69
[2022-10-08] MEDS: INSULIN REGULAR, HUMAN 100 UNIT/ML 3 ML VIAL SQ PRN ×2 (12:01→22:15)
[2022-10-08 16:00] VITALS: BP 136/67
[2022-10-08] MEDS: CEFTRIAXONE 1 G in IV D5W 50 ML IV SCH (17:23)
--- NOTE | 2022-10-08 19:34 | NUR ---
RN MS CLOSING NOTES PATIENT ON BED AWAKE FINNISH SPEAKER , A/O X4 , VERBALLY RESPONSIVE , ROOM AIR WITH NO SOB OR DISTRESS NOTED , NO C/O OF PAIN AND DISCOMFORT , NO FEVER , WITH PUREWICK AND ABLE TO GO TO BATHROOM IV ACCESS ON RIGHT HAND #20 WITH NS @75 ML /HR , ALL DUE MEDS GIVEN ORDERED , WITH IV ACCESS ON THE RIGOBERTO INSERTED FOR IV ATB AT HOME , SR UP X2 , SAFETY MEASURES PROVIDED , CALL LIGHT WITHIN REACH AND ENDORSED TO NEXT SHIFT .
--- NOTE | 2022-10-08 19:45 | NUR ---
RN Opening Notes Received pt in bed, awake, with family at bedside. AOx4, able to make needs known. On RA and tolerating well. No SOB noted. No s/sx of respiratory distress noted. Tele monitor detects SR. IV access in R Hand #20G running NS @ 70 mL/hr. Safety precautions in place: bed in lowest, locked position, siderails upX2, and brakes on. Table and call light within reach. All needs met at this time.
[2022-10-08 20:00] VITALS: BP 114/61
[2022-10-08] MEDS: ENOXAPARIN SODIUM 40 MG/0.4 ML DISP.SYRIN SQ SCH (21:14)
[2022-10-09] VITALS: BP 132/71
[2022-10-09 04:00] VITALS: BP 125/68
[2022-10-09 05:54] LABS: BASOPHILS % (AUTO) 0.5 % (0.0-2.0); EOSINOPHILS % (AUTO) 2.9 % (0.0-6.0); HEMATOCRIT 30 % (33-45); LYMPHOCYTES # (AUTO) 2.5 K/uL (0.8-4.8); LYMPHOCYTES % (AUTO) 25.2 % (20.0-44.0); MEAN CORPUSCULAR HGB CONC 33 g/dl (31.0-36.0); MEAN CORPUSCULAR VOLUME 84 fL (82-100); MONOCYTES # (AUTO) 0.9 K/uL (0.1-1.30); MONOCYTES % (AUTO) 9.6 % (2.0-12.0); NEUTROPHILS # (AUTO) 6.1 K/uL (1.8-8.9); NEUTROPHILS % (AUTO) 61.8 % (43.0-81.0); PLATELET COUNT (AUTO) 456 K/uL (150-450); RED BLOOD CELL COUNT(AUTO) 3.61 MIL/uL (4.0-5.2); WHITE BLOOD COUNT (AUTO) 9.9 K/uL (4.3-11.0)
[2022-10-09 06:06] LABS: CALCIUM, SERUM 8.8 mg/dL (8.5-10.1); CREATININE 0.5 mg/dL (0.6-1.3); POTASSIUM 4.1 mmol/L (3.5-5.1)
[2022-10-09] MEDS: IV NS 0.9% 1,000 ML IV PRN (06:16)
[2022-10-09] MEDS: BLOOD SUGAR DIAGNOSTIC 1 EACH STRIP IN SCH ×2 (06:34→11:38)
[2022-10-09] MEDS: INSULIN REGULAR, HUMAN 100 UNIT/ML 3 ML VIAL SQ PRN ×2 (06:36→11:41)
--- NOTE | 2022-10-09 06:48 | NUR ---
RN Closing Notes Pt in bed, asleep, awakens to verbal stimuli. AOx4, able to make needs known. On RA and tolerating well. No SOB noted. No s/sx of respiratory distress noted. Tele monitor detects SR. IV access in RIGOBERTO Midline #18G and R Hand #20G running NS @ 70 mL/hr. All orders carried out. All needs met. Pt kept clean and dry. Safety precautions in place: bed in lowest, locked position, siderails upX2, and brakes on. Table and call light within reach. Will endorse to oncoming shift for MARLO.
--- NOTE | 2022-10-09 07:47 | NUR ---
RN OPENING NOTE RECEIVED PATIENT AWAKE IN BED, GABONESE SPEAKING, ABLE TO MAKE NEEDS KNOWN. A/OX4 , VERBALLY RESPONSIVE. PT IS ON ROOM AIR, BREATHING EVEN AND NON LABORED. WITH NO SOB OR DISTRESS NOTED, NO C/O OF PAIN AND DISCOMFORT. PT IS ON EXTERNAL CHARACTER ARTIST READING SR. PUREWICK IN PLACE DRAINING YELLOW URINE. IV ACCESS IN R UA MIDLINE #18G AND RIGHT HAND #20G WITH NS RUNNING @75 ML/HR. FALL AND SAFETY MEASURES IN PLACE, BED ALARM ON, BED IN LOW AND LOCK POSITION, CALL LIGHT AND TABLE WITHIN EASY REACH, SIDE RAILS UP X2. WILL CONTINUE TO MONITOR.
[2022-10-09] MEDS: PANTOPRAZOLE 40 MG TABLET.DR PO SCH (08:15)
[2022-10-09] MEDS: DOCUSATE SODIUM LIQ 100 MG/10 ML UDC NG SCH (08:15)
[2022-10-09 08:41] VITALS: BP 129/69
[2022-10-09 11:53] VITALS: BP 138/70
[2022-10-09] MEDS ORDERED: CEFTRIAXONE 2 G in IV D5W 100 ML IV SCH (16:00)
[2022-10-09] MEDS ORDERED: CEFTRIAXONE 2 G in IV D5W 50 ML IV SCH (16:00)
[2022-10-09 16:25] VITALS: BP 127/72
--- NOTE | 2022-10-09 17:20 | NUR ---
SHEARING SHED HAND NOTE PATIENT DISCHARGE IN STABLE MEDICAL CONDITION. A/OX4. VS TAKEN, STABLE AND RECORDED. IV ACCESS IN R UA MIDLINE #18G FOR HOME HEALTH ANTIBIOTIC. NAME ARM BAND REMOVED. EXTERNAL LOG DATA TECHNICIAN REMOVED AND RETURNED TO TELE DESK. SKIN ASSESSMENT DONE. SKIN INTACT. ALL BELONGINGS CHECKED AND BELONGINGS LIST SIGNED. HEALTH TEACHING AND DISCHARGE INSTRUCTION GIVEN AND VERBALIZED UNDERSTANDING. INSTRUCTED PATIENT IN CASE OF EMERGENCY TO CALL 911 OR GO TO THE NEAREST ER. PATIENT LEFT VIA WHEELCHAIR WITH NO SIGN OF DISTRESS, ACCOMPANIED JERRY SHIRLEY TO THE LOBBY. PATIENT LEFT VIA PRIVATE CAR WITH FAMILY MEMBER. CHARGE NURSE AWARE OF DISCHARGE.
== END 2022-10-09 17:20 | disposition home health service (06) | DRG 871 ==
LOC: ER 21:03 → MED 10-03 04:35 → TELE 10-03 05:59
PROVIDERS: ADMIT Nurse Practitioner Acute Care; ATTEND Nurse Practitioner Acute Care
PROC: 05HB33Z Insertion of Infusion Device into Right Basilic Vein, Percutaneous Approach (ICD-10-PCS; principal; 2022-10-08)
DX: A41.51 Sepsis due to Escherichia coli [E. coli] (principal); G93.41 Metabolic encephalopathy; R65.21 Severe sepsis with septic shock; N10 Acute pyelonephritis; E87.20 Acidosis, unspecified; E11.9 Type 2 diabetes mellitus without complications; N20.0 Calculus of kidney; B96.20 Unspecified Escherichia coli [E. coli] as the cause of diseases classified elsewhere; I10 Essential (primary) hypertension; Z87.01 Personal history of pneumonia (recurrent); Z87.440 Personal history of urinary (tract) infections; Z79.84 Long term (current) use of oral hypoglycemic drugs; N30.90 Cystitis, unspecified without hematuria; N83.202 Unspecified ovarian cyst, left side
CPT/HCPCS: 36410; 36415; 71045-TC; 80048-TC; 80061-TC; 80076-TC; 80202-TC; 81001; 82962-TC; 83605-TC; 83690-TC; 83735-TC; 85025-TC; 86803; 87040-TC; 87081-TC; 87086-TC; 87806; 97116-TC; 97530-TC; A4223; C9803; G0378; J0692; J0696; J1650; J1815; J1885; J2185; J2270; J2405; J2543; J3370; J3490; J7030; J7060

== ENCOUNTER 2022-11-09 11:12 | Inpatient (IN) | payer OTHER ==
[~2022-11-09] VITALS: Ht 167.6 cm; Wt 71.7 kg
--- NOTE | 2022-11-09 | NUR ---
AERIAL HURRICANE HUNTERTURBINE TECHNICIAN NOTE PATIENT WAS TRANSPORTED TO THE UNIT FROM ER ON A GURNEY. PT IS ALERT AND ORIENTED, AO X 4. SHE IS NEPALESE SPEAKING, BUT UNDERSTAND SIMPLE SERBIAN. SHE IS ON RA, AO X 4. IV ACCESS IS AT HER R AC, #20G, SL. FLUSHED WELL WITH 10 CC OF NS. IV SITE IS PATENT AND INTACT. UPON ARRIVAL, VITAL SIGNS WERE TAKEN: BP IS 112/74, RR IS 20, HR IS 82, TEMP IS 98.3, AND O2 SAT IS 97% ON RA. PT DENIES OF HAVING PAIN AT THIS MOMENT. PT IS ON EXTERNAL WASHING MACHINE INSTALLER. ON THE MONITOR, HER HEART RHYTHM IS SR WITH HR AT 70S. INTRODUCED THE SURROUNDINGS TO THE PT AND TAUGHT PT HOW TO USE THE CALL LIGHT; PT VERBALIZED UNDERSTANDING. SAFETY MEASURES ARE IN PLACED: BED IN LOWEST AND LOCKED POSITION; SIDE RAILS UP X 2; CALL LIGHT AND TABLE ARE WITHIN REACH. WILL MONITOR THE PT AND PROVIDE THE CARE PT NEEDS.
[~2022-11-09 11:12] MED LIST changes: -AZIT250T13 PO; +BENA20TA9 PO; +IBUP-1488 PO; -IBUP-1953 PO; +INSU100I26 SQ; -METF-440 PO; -METH4TAB3 PO; -ONDA4TAB5 PO
--- NOTE | 2022-11-09 11:31 | NUR ---
COMPLAINING OF ABDOMINAL PAIN , NAUSEA AND FEVER . PATIENT WAS HOSPITALIZED A MONTH AGO FOR KIDNEY STONE AND INFECTION . SHE FINISHED ROCEPHIN ANTIBIOTIC PRESCRIBED . PLACED ON MONITOR. CARE CONTINUES
--- NOTE | 2022-11-09 11:33 | NUR ---
Pt in stretcher. Pt c/o fever, aching joints, and abdominal pain. Pt pending provider evaluation
--- NOTE | 2022-11-09 11:48 | NUR ---
Urine sample collected and sent to lab
[2022-11-09] MEDS ORDERED: ONDANSETRON HCL/PF 4 MG/2 ML VIAL IVP ONE (12:00)
[2022-11-09] MEDS ORDERED: IV NS 0.9% 1,000 ML BAG IV ONE (12:00)
[2022-11-09 12:11] LABS: BASOPHILS # (AUTO) 0.1 K/uL (0.0-0.2); BASOPHILS % (AUTO) 0.3 % (0.0-2.0); HEMATOCRIT 36 % (33-45); HEMOGLOBIN 11.7 g/dL (11.5-14.8); LYMPHOCYTES # (AUTO) 0.9 K/uL (0.8-4.8); MEAN CORPUSCULAR HGB CONC 33 g/dl (31.0-36.0); MEAN CORPUSCULAR VOLUME 84 fL (82-100); MONOCYTES # (AUTO) 1.1 K/uL (0.1-1.30); MONOCYTES % (AUTO) 5.2 % (2.0-12.0); NEUTROPHILS # (AUTO) 19.7 K/uL (1.8-8.9); NEUTROPHILS % (AUTO) 90.5 % (43.0-81.0); PLATELET COUNT (AUTO) 240 K/uL (150-450); RED BLOOD CELL COUNT(AUTO) 4.29 MIL/uL (4.0-5.2); WHITE BLOOD COUNT (AUTO) 21.8 K/uL (4.3-11.0)
[2022-11-09] MEDS ORDERED: ONDANSETRON HCL/PF 4 MG/2 ML VIAL ONE (12:13)
[2022-11-09 12:31] LABS: ALANINE AMINOTRANSFERASE 20 U/L (12-78); ALBUMIN 3.3 g/dL (3.4-5.0); ALKALINE PHOSPHATASE 99 U/L (46-116); ASPARTATE AMINOTRANSFERASE 17 U/L (15-37); BILIRUBIN,DIRECT 0.3 mg/dL (0.0-0.2); BILIRUBIN,TOTAL 1.6 mg/dL (0.2-1.0); CALCIUM, SERUM 9.1 mg/dL (8.5-10.1); CARBON DIOXIDE 27 mmol/L (21-32); CHLORIDE 102 mmol/L (98-107); CREATININE 0.9 mg/dL (0.6-1.3); GLUCOSE 260 mg/dL (74-106); POTASSIUM 4.2 mmol/L (3.5-5.1); SODIUM SERUM 135 mmol/L (136-145); TOTAL PROTEIN, SERUM 7.3 g/dL (6.4-8.2); UREA NITROGEN, BLOOD 15 mg/dL (7-18)
[2022-11-09] MEDS ORDERED: CEFTRIAXONE 1 G VIAL ONE (12:43)
[2022-11-09 12:53] LABS: BILIRUBIN,URINE NEGATIVE (NEGATIVE); COLOR,URINE YELLOW (YELLOW); LEUKOCYTE ESTERASE ,URINE 2+ (NEGATIVE); NITRITE, URINE POSITIVE (NEGATIVE); PROTEIN,URINE 1+ mg/dl (NEGATIVE); UGLUCOSE 1+ mg/dL (NEGATIVE)
[2022-11-09 12:54] LABS: BACTERIA,URINE Few /HPF (None Seen); RBC,URINE 0-2 /HPF (0-2); SQUAMOUS EPITHELIAL CELL,UR Few /HPF (None Seen)
[2022-11-09] MEDS ORDERED: CEFTRIAXONE 1GM BAG (ER ONLY) 1 GM/50 ML PIGGYBACK IV ONE (13:00)
--- NOTE | 2022-11-09 13:53 | NUR ---
Pt ryan Miller [phone]
--- NOTE | 2022-11-09 14:08 | NUR ---
COVID swab obtained and sent to lab
--- NOTE | 2022-11-09 14:12 | NUR ---
Per pt request daughter called and updated on pt status
--- NOTE | 2022-11-09 15:18 | NUR ---
Pt noted to have fevr of 102.9 and a HR of 123, ER made aware
[2022-11-09] MEDS ORDERED: ACETAMINOPHEN ES 500 MG TABLET ONE (15:25)
[2022-11-09] MEDS ORDERED: IV NS 0.9% 1,000 ML IV ONE ×2 (15:30→20:00)
[2022-11-09] MEDS ORDERED: ACETAMINOPHEN 325 MG TABLET PO ONE (15:30)
[2022-11-09] MEDS ORDERED: KETOROLAC TROMETHAMINE INJ 30 MG/ML VIAL ONE (15:58)
[2022-11-09] MEDS ORDERED: KETOROLAC TROMETHAMINE INJ 30 MG/ML VIAL IV ONE (16:00)
--- NOTE | 2022-11-09 16:01 | NUR ---
Pt c/o 04/[address] Mancia made aware, new orders reciecved and carried out. See MAR for details
--- NOTE | 2022-11-09 16:41 | NUR ---
spoke to case monitor lissy, verbal authorization given, [id number].
--- NOTE | 2022-11-09 19:13 | NUR ---
REPORT GIVEN ANGEL PINTO
--- NOTE | 2022-11-09 19:48 | NUR ---
RECEIVED REPORT FROM DENISHA RAMON. PATIENT IS AAOX4. SLEEPY. WITH IV VIJI ON RIGHT AC G20. VITALS CHECKED. BP AT 84/59mmHg, DR KU AWARE. HOOKED ANOTHER 1L OF NS END TIME 2014
[2022-11-09] MEDS ORDERED: KETOROLAC TROMETHAMINE INJ 30 MG/ML VIAL IV PRN (20:00)
[2022-11-09] MEDS ORDERED: MORPHINE SULFATE INJ 2 MG/ML DISP.SYRIN IV PRN (20:00)
[2022-11-09] MEDS ORDERED: ONDANSETRON HCL/PF 4 MG/2 ML VIAL IVP PRN (20:00)
--- NOTE | 2022-11-09 20:43 | NUR ---
REPORT GIVEN TO DENISHA TURNER
[2022-11-09 21:00] VITALS: BP 112/74
--- NOTE | 2022-11-09 21:10 | NUR ---
ELECTRIC ORGAN INSPECTOR AND REPAIRER ADMITTING NOTE PATIENT IS TRANSPORTED FROM ER TO THE UNIT ON A GURNEY. PT IS ON RA, TOLERATED WELL. NO S/S OF DISTRESS OR SOB. PT IS MALAWIAN SPEAKING, UNDERSTAND SIMPLE NICARAGUAN. SHE IS ALERT AND ORIENTED, AO X 4. IV ACCESS IS AT HER R AC, #20G, SL. FLUSHED WELL WITH 10 CC OF NS. PT IS ON EXTERNAL FRANCHISE SPECIALIST, ON THE MONITOR, PT'S HEART RHYTHM IS SR WITH HR AT 70S. PT DENIES OF HAVING PAIN, NO N/V AT THIS MOMENT. ORBITED THE PT WITH SURROUNDINGS AND HOW TO USE THE CALL LIGHT; PT VERBALIZED UNDERSTANDING. SAFETY MEASURES ARE IN PLACED: BED IN LOWEST AND LOCKED POSITION; SIDE RAILS UP X 2; CALL LIGHT AND TABLE ARE WITHIN REACH. WILL CONTINUE MONITORING THE PT AND PROVIDE THE CARE PT NEEDS.
--- NOTE | 2022-11-09 21:33 | NUR ---
PT TRASNFERRED TO [facility]
[2022-11-09] MEDS: IV NS 0.9% 1,000 ML IV PRN (22:39)
[2022-11-10] VITALS: BP 131/69
[2022-11-10 01:00] VITALS: BP 131/69
--- NOTE | 2022-11-10 03:12 | NUR ---
GARAGE MECHANIC NOTE PATIENT VOMITED OUT MEDIUM AMOUNT OF FOOD. PRN IV MEDICATION, ZOFRAN, ADMINISTERED TO THE PT PER MD ORDER.
[2022-11-10 04:00] VITALS: BP 142/76
[2022-11-10] MEDS: ACETAMINOPHEN 325 MG TABLET PO PRN ×2 (04:02→14:28)
--- NOTE | 2022-11-10 04:02 | NUR ---
PAGE TECHNICIAN NOTE PT STATED THAT SHE WAS HAVING HEADACHE. PRN PO MEDICATION, TYLENOL 650 MG, ADMINISTERED TO THE PT PER MD ORDER.
--- NOTE | 2022-11-10 04:17 | NUR ---
ALLERGIST/MD NOTE PT STATED THAT SHE WAS HAVING SEVERE BACK PAIN, 02/22. PRN IV MEDICATION, MORPHINE 2 MG, ADMINISTERED TO THE PT PER MD ORDER.
[2022-11-10 06:29] LABS: BASOPHILS % (AUTO) 0.2 % (0.0-2.0); EOSINOPHILS % (AUTO) 0.1 % (0.0-6.0); HEMATOCRIT 30 % (33-45); LYMPHOCYTES # (AUTO) 0.7 K/uL (0.8-4.8); LYMPHOCYTES % (AUTO) 4.4 % (20.0-44.0); MEAN CORPUSCULAR HGB CONC 33 g/dl (31.0-36.0); MEAN CORPUSCULAR VOLUME 84 fL (82-100); MONOCYTES # (AUTO) 1.1 K/uL (0.1-1.30); MONOCYTES % (AUTO) 7.5 % (2.0-12.0); NEUTROPHILS # (AUTO) 13.5 K/uL (1.8-8.9); NEUTROPHILS % (AUTO) 87.8 % (43.0-81.0); PLATELET COUNT (AUTO) 168 K/uL (150-450); RED BLOOD CELL COUNT(AUTO) 3.63 MIL/uL (4.0-5.2); WHITE BLOOD COUNT (AUTO) 15.3 K/uL (4.3-11.0)
--- NOTE | 2022-11-10 06:55 | NUR ---
MACHINE IRONER CLOSING NOTE PATIENT IS SLEEPING IN BED, EASILY BEING AROUSED. PT IS ON RA, TOLERATED WELL. NO S/S OF DISTRESS OR SOB. PT IS ENGLISH SPEAKING, UNDERSTAND SIMPLE [place]. SHE IS ALERT AND ORIENTED, AO X 4. IV ACCESS IS AT HER R AC, #20G, INFUSING NS @ 75 ML/HR. IV SITE IS PATENT AND INTACT. PT IS ON EXTERNAL SEMICONDUCTOR DEVELOPMENT TECHNICIAN, ON THE MONITOR, PT'S HEART RHYTHM IS SR WITH HR AT 90S. PT DENIES OF HAVING PAIN, NO N/V AT THIS MOMENT. DURING THE SHIFT, PT HAD ONE EPISODE OF VOMITING, VOMITED OUT MEDIUM AMOUNT OF FOOD. PRN MEDICATION, ZOFRAN, ADMINISTERED TO THE PT; NO MORE VOMITING OR NAUSEA. DURING SHIFT, PT HAS ONE EPISODE OF HEADACHE, PRN MEDICATION TYLENOL ADMINISTERED TO THE PT. HER HEADACHE STOPPED. PT ALSO COMPLAIN OF HAVING BACK PAIN, PRN MEDICATION, MORPHINE ADMINISTERED TO THE PT. THE PAIN STOPPED. SAFETY MEASURES ARE IN PLACED: BED IN LOWEST AND LOCKED POSITION; SIDE RAILS UP X 2; CALL LIGHT AND TABLE ARE WITHIN REACH. WILL ENDORSE NEXT SHIFT NURSE FOR CONTINUING PT CARE.
[2022-11-10 07:07] LABS: CALCIUM, SERUM 8.4 mg/dL (8.5-10.1); CREATININE 0.7 mg/dL (0.6-1.3); MAGNESIUM 1.8 mg/dL (1.8-2.4); PHOSPHORUS 1.4 mg/dL (2.5-4.9); POTASSIUM 3.3 mmol/L (3.5-5.1)
--- NOTE | 2022-11-10 07:15 | NUR ---
DECK STEWARD OPENING NOTES RECEIVED PATIENT ON BED AWAKE , A/O X 4 , SWEDISH SPEAKING , ROOM AIR WITH NO SOB OR DISTRESS NOTED, NO C/O OF PAIN AND DISCOMFORT M
--- NOTE | 2022-11-10 07:20 | NUR ---
ASSEMBLER INSULATOR NOTES PATIENT WITH TELE MONITOR AND READING OF SR 90, IV ACCESS ON THE RAC #20 WITH NS @75 ML /HR , SAFETY MEASURES PROVIDED , CALL LIGHT WITHIN REACH AND MONITOR FOR ANY CHANGES
[2022-11-10] MEDS: PANTOPRAZOLE 40 MG VIAL IV SCH (09:22)
[2022-11-10 09:49] VITALS: BP 93/54
[2022-11-10] MEDS ORDERED: POTASSIUM CHLORIDE 20 MEQ TAB.PRT.SR PO SCH (11:00)
[2022-11-10 15:52] VITALS: BP 127/69
[2022-11-10] MEDS ORDERED: POTASSIUM PHOSPHATE MM 7.5 MMOL in IV NS 0.9% 100 ML IV SCH (17:00)
[2022-11-10] MEDS: IV NS 0.9% 1,000 ML IV PRN (17:28)
[2022-11-10] MEDS ORDERED: Sodium Phosphate 15 MMOL in IV NS 0.9% 245 ML IV SCH (18:00)
--- NOTE | 2022-11-10 19:25 | NUR ---
RN OPENING NOTE RECEIVED PATIENT IN BED; AWAKE, ALERT AND ORIENTED X 4. THAI SPEAKING UNDERSTAND SIMPLE SLOVENIAN. ON ROOM AIR; TOLERATING WELL SATING @ 96%. BREATHING EVEN AND NONLABORED. NOT IN ANY FORM OF RESPIRATORY OR CARDIAC DISTRESS. DENIES ANY PAIN OR DISCOMFORT AT THIS TIME. WITH IV ACCESS ON RIGHT ANTECUBITAL 20g; PATENT AND INTACT INFUSING WITH NS 1L RUNNING @ 75 ML/HR; FLUSHING WELL. ABLE TO VERBALIZE NEEDS. SAFETY MEASURES IMPLEMENTED: CALL LIGHT AND TABLE WITHIN EASY REACH, SIDE RAILS UP X 2, BED IN LOWEST LOCKED POSITION. WILL CONTINUE TO MONITOR THROUGHOUT SHIFT.
[2022-11-10] MEDS ORDERED: DEXTROSE 50%-WATER 50 ML DISP.SYRIN IV PRN (19:30)
[2022-11-10 20:00] VITALS: BP 114/59
--- NOTE | 2022-11-10 20:22 | NUR ---
BENEFIT DIRECTOR CLOSING NOTES PATIENT IN BED AWAKE AND ABLE TO NEEDS KNOWN , MONGOLIAN SPEAKING AND ROOM AIR WITH NO SOB OR DISTRESS NOTED , PATIENT WITH TELE MONITOR AND READING OF SR 88 , IV ACCESS ON THE RAC #20 WITH NS @75 ML /HR , ALL DUE MEDS ORDERED GIVEN , NOTED WITH LOW K AND WITH NEW ORDER TO REPLACED WITH 20 MEQ PO . SAFETY MEASURES PROVIDED , CALL LIGHT WITHIN REACH AND ENDORSED TO NEXT SHIFT
--- NOTE | 2022-11-10 20:34 | NUR ---
RN NOTES RECEIVED A CALL FOR LAB REGARDING THE RESULT OF BLOOD CULTURE AND WITH RESULT OF GRAM NEGATIVE BACILLI AND CONSTANTINO MELCHOR AWARE AND WITH NEW ORDER AND ENDORSED TO NEXT SHIFT
[2022-11-10] MEDS ORDERED: CEFTRIAXONE 1 G in IV D5W 50 ML IV SCH (21:00)
[2022-11-10] MEDS ORDERED: PIPERACILLIN /TAZOBACTAM 3.375 G VIAL IV ONE (21:48)
[2022-11-10] MEDS ORDERED: BLOOD SUGAR DIAGNOSTIC 1 EACH STRIP IN SCH (22:00)
[2022-11-10] MEDS: BLOOD SUGAR DIAGNOSTIC 1 EACH STRIP IN SCH (23:01)
[2022-11-10] MEDS: INSULIN REGULAR, HUMAN 100 UNIT/ML 3 ML VIAL SQ PRN (23:25)
--- NOTE | 2022-11-10 23:25 | NUR ---
RN NOTE PATIENT'S BLOOD SUGAR - 180 MG/DL. 3 UNITS OF REGULAR INSULIN GIVEN SQ ORDERED PER SLIDING SCALE. WILL CONTINUE TO MONITOR
[2022-11-11] VITALS: BP 147/75
[2022-11-11] MEDS: ACETAMINOPHEN 325 MG TABLET PO PRN ×2 (00:01→23:47)
[2022-11-11] MEDS ORDERED: PIPERACILLIN /TAZOBACTAM 3.375 G VIAL IV ONE (05:51)
[2022-11-11] MEDS ORDERED: PIPERACILLIN /TAZOBACTAM 3.375 G in IV D5W 50 ML IV SCH (06:00)
[2022-11-11] MEDS: BLOOD SUGAR DIAGNOSTIC 1 EACH STRIP IN SCH ×4 (06:49→21:27)
--- NOTE | 2022-11-11 06:59 | NUR ---
RN CLOSING NOTE PATIENT IN BED; AWAKE, A/OX 4. STABLE ON ROOM AIR. NOT IN ANY FORM OF RESPIRATORY OR CARDIAC DISTRESS NOTED AT THIS TIME. NO COMPLAINTS OF PAIN OR DISCOMFORT. ON TELE MONITORING WHICH READS SR HR-81 BPM. WITH IV ACCESS ON RIGHT AC 20g; INTACT AND PATENT INFUSING WITH NS 1L REGULATED @ 75 ML/HR; FLUSHES WELL. ALL NEEDS ATTENDED. ALL DUE MEDS GIVEN ORDERED. SAFETY MEASURES MAINTAINED: CALL LIGHT AND TABLE WITHIN EASY REACH, SIDE RAILS UP X 2, BED IN LOWEST LOCKED POSITION. ENDORSED TO MORNING SHIFT FOR CONTINUITY OF CARE.
[2022-11-11] MEDS: INSULIN REGULAR, HUMAN 100 UNIT/ML 3 ML VIAL SQ PRN ×4 (07:00→21:27)
--- NOTE | 2022-11-11 07:00 | NUR ---
RN NOTE PATIENT'S BLOOD SUGAR - 101 MG/DL. COVERAGE HELD ORDERED PER SLIDING SCALE. WILL CONTINUE TO MONITOR
--- NOTE | 2022-11-11 07:35 | NUR ---
NEWSSTAND VENDOR OPENING NOTES: RECEIVED PATIENT IN BED; ASLEEP, EASILY ROUSED, A/OX4 [place] SPK. STABLE ON ROOM AIR, NO S/S OF SOB, REPORTS PAIN 5-6/10, WILL MEDICATE ORDERED. TELE MONITORING READS SR, HR-88 BPM. IV ACCESS @ RIGHT AC #20g; INTACT AND PATENT INFUSING WITH NS @ 75 ML/HR. SAFETY MEASURES MAINTAINED: CALL LIGHT AND TABLE WITHIN EASY REACH, SIDE RAILS UP X 2, BED IN LOWEST LOCKED POSITION, WILL CONT WIT PLAN OF CARE DURING SHIFT.
[2022-11-11 08:00] VITALS: BP 140/73
[2022-11-11 08:20] LABS: CALCIUM, SERUM 8.7 mg/dL (8.5-10.1); CREATININE 0.7 mg/dL (0.6-1.3); POTASSIUM 3.6 mmol/L (3.5-5.1)
[2022-11-11] MEDS: PANTOPRAZOLE 40 MG VIAL IV SCH (08:33)
[2022-11-11 10:54] LABS: BASOPHILS % (AUTO) 0.3 % (0.0-2.0); EOSINOPHILS % (AUTO) 0.8 % (0.0-6.0); HEMATOCRIT 29 % (33-45); HEMOGLOBIN 9.5 g/dL (11.5-14.8); LYMPHOCYTES # (AUTO) 1.6 K/uL (0.8-4.8); LYMPHOCYTES % (AUTO) 14.2 % (20.0-44.0); MEAN CORPUSCULAR HGB CONC 33 g/dl (31.0-36.0); MEAN CORPUSCULAR VOLUME 84 fL (82-100); MONOCYTES # (AUTO) 0.9 K/uL (0.1-1.30); MONOCYTES % (AUTO) 7.8 % (2.0-12.0); NEUTROPHILS # (AUTO) 8.9 K/uL (1.8-8.9); NEUTROPHILS % (AUTO) 76.9 % (43.0-81.0); PLATELET COUNT (AUTO) 177 K/uL (150-450); RED BLOOD CELL COUNT(AUTO) 3.46 MIL/uL (4.0-5.2); WHITE BLOOD COUNT (AUTO) 11.6 K/uL (4.3-11.0)
[2022-11-11 12:00] VITALS: BP 110/66
[2022-11-11] MEDS: PIPERACILLIN /TAZOBACTAM 3.375 G in IV D5W 50 ML IV SCH ×3 (12:02→23:15)
--- NOTE | 2022-11-11 13:11 | NUR ---
RN NOTES: SPOKE TO PT'S DAUGHTER CHIDI, , RN GAVE UPDATES ABOUT PT, SENT TEL# TO HOSPITALIST FOR ADDITIONAL QUESTIONS AND CONCERNS.
[2022-11-11] MEDS: IV NS 0.9% 1,000 ML IV PRN (15:08)
[2022-11-11 16:00] VITALS: BP 107/66
--- NOTE | 2022-11-11 18:42 | NUR ---
CHILDREN'S ATTENDANT CLOSING NOTES: PATIENT IN BED; ASLEEP, EASILY ROUSED, A/OX4 [place] SPK. STABLE ON ROOM AIR, NO S/S OF SOB. TELE MONITORING READS SR, HR-76 BPM. IV ACCESS @ RIGHT AC #20g; INTACT AND PATENT INFUSING NS @ 75 ML/HR. ALL DUE MEDS GIVEN, NEEDS MET. SAFETY MEASURES MAINTAINED: CALL LIGHT AND TABLE WITHIN EASY REACH, SIDE RAILS UP X 2, BED IN LOWEST LOCKED POSITION, WILL ENDORSE TO PM SHIFT.
--- NOTE | 2022-11-11 19:20 | NUR ---
RURAL SOCIOLOGIST OPENING NOTE RECEIVED PATIENT FROM AM NURSE, PATIENT AWAKE IN BED, A/O X 4 TELUGU AND ROMANIAN SPEAKING; STABLE ON ROOM AIR, BREATHING EVENLY AND NO S/S OF DISTRESS NOTED; ON TELE MONITORING CURRENTLY READING SINUS RHYTHM HR 70S BPM; WITH IV ACCESS AT RIGHT AC G#20; INTACT AND PATENT INFUSING NORMAL SALINE AT 75 ML/HR; ENCOURAGED VERBALIZATION OF NEEDS; SAFETY MEASURES MAINTAINED: CALL LIGHT AND TABLE WITHIN EASY REACH, SIDE RAILS UP X 2, BED LOCKED IN LOWEST POSITION; WILL CONTINUE TO MONITOR THROUGHOUT SHIFT
[2022-11-11 20:00] VITALS: BP 130/71
[2022-11-12] VITALS (7 sets, daily range): BP systolic 128–159; BP diastolic 66–78
--- NOTE | 2022-11-12 02:45 | NUR ---
PLANT MAINTENANCE MECHANIC NOTE UPON MAKING ROUNDS, NOTICED THAT PATIENT'S IV IS LEAKING; CHECKED FOR PATENCY AND REMOVED THE IV CATHETER, COMPLETENESS NOTED; REINSERTED IV AT RIGHT HAND G#20, FLUSHES WELL, INTACT AND PATENT AND CONTINUE INFUSING NORMAL SALINE AT 75 ML/HR; WILL CONTINUE TO MONITOR
[2022-11-12] MEDS: IV NS 0.9% 1,000 ML IV PRN ×2 (04:23→22:57)
[2022-11-12] MEDS: PIPERACILLIN /TAZOBACTAM 3.375 G in IV D5W 50 ML IV SCH ×4 (05:26→23:00)
[2022-11-12 06:18] LABS: BASOPHILS % (AUTO) 0.3 % (0.0-2.0); EOSINOPHILS % (AUTO) 2.8 % (0.0-6.0); HEMATOCRIT 27 % (33-45); HEMOGLOBIN 8.9 g/dL (11.5-14.8); LYMPHOCYTES % (AUTO) 24.4 % (20.0-44.0); MEAN CORPUSCULAR HGB CONC 33 g/dl (31.0-36.0); MEAN CORPUSCULAR VOLUME 84 fL (82-100); MONOCYTES # (AUTO) 0.7 K/uL (0.1-1.30); MONOCYTES % (AUTO) 8.7 % (2.0-12.0); NEUTROPHILS # (AUTO) 5.3 K/uL (1.8-8.9); NEUTROPHILS % (AUTO) 63.8 % (43.0-81.0); PLATELET COUNT (AUTO) 208 K/uL (150-450); RED BLOOD CELL COUNT(AUTO) 3.26 MIL/uL (4.0-5.2); WHITE BLOOD COUNT (AUTO) 8.2 K/uL (4.3-11.0)
[2022-11-12] MEDS: BLOOD SUGAR DIAGNOSTIC 1 EACH STRIP IN SCH ×4 (06:33→21:31)
[2022-11-12] MEDS: INSULIN REGULAR, HUMAN 100 UNIT/ML 3 ML VIAL SQ PRN ×3 (06:36→17:34)
[2022-11-12 06:50] LABS: CALCIUM, SERUM 8.7 mg/dL (8.5-10.1); CREATININE 0.7 mg/dL (0.6-1.3); MAGNESIUM 2.1 mg/dL (1.8-2.4); PHOSPHORUS 3.2 mg/dL (2.5-4.9); POTASSIUM 3.8 mmol/L (3.5-5.1)
--- NOTE | 2022-11-12 06:55 | NUR ---
SLASHER TENDER CLOSING NOTE PATIENT AWAKE IN BED, A/O X 4, COOK ISLANDER AND MICRONESIAN SPEAKING; STABLE ON ROOM AIR, BREATHING EVENLY AND NO S/S OF DISTRESS NOTED; ON TELE MONITORING CURRENTLY READING SINUS RHYTHM HR 70-80S BPM; WITH IV ACCESS AT RIGHT HAND G#20; INTACT AND PATENT INFUSING NORMAL SALINE AT 75 ML/HR; ADMINISTERED MEDICATIONS PRESCRIBED; PATIENT'S NEEDS ATTENDED; MONITORED PATIENT ACCORDINGLY; SAFETY MEASURES MAINTAINED: CALL LIGHT AND TABLE WITHIN EASY REACH, SIDE RAILS UP X 2, BED LOCKED IN LOWEST POSITION; WILL ENDORSE TO AM NURSE FOR MARLO.
--- NOTE | 2022-11-12 07:35 | NUR ---
SIEBEL CRM DEVELOPER OPENING NOTES: RECEIVED PATIENT IN BED; ASLEEP, EASILY ROUSED, A/OX4 TRISTANIAN/CAMBODIAN SPK. STABLE ON ROOM AIR, NO S/S OF SOB, REPORTS PAIN 5-6/10, WILL MEDICATE ORDERED. TELE MONITORING READS SR, HR-88 BPM. IV ACCESS @ RIGHT HAND #20g; INTACT AND PATENT INFUSING WITH NS @ 75 ML/HR. SAFETY MEASURES MAINTAINED: CALL LIGHT AND TABLE WITHIN EASY REACH, SIDE RAILS UP X 2, BED IN LOWEST LOCKED POSITION, WILL CONT WIT PLAN OF CARE DURING SHIFT.
[2022-11-12] MEDS: PANTOPRAZOLE 40 MG/PACK PACK PO SCH (09:05)
[2022-11-12] MEDS: BENAZEPRIL HCL 20 MG TABLET PO SCH (09:05)
--- NOTE | 2022-11-12 11:30 | NUR ---
RN NOTES: OBTAINED CONSENT FOR MRI OF PELVIS WITH CONTRAST, CHECKLIST DONE. PT STATES SHE FEELS ANXIOUS IN CONFINED SPACES. WILL ASK MD TO ORDER ANTI ANXIETY BEFORE PROCEDURE, PT VERBALIZED UNDERSTANDING TO EVERYTHING DISCUSSED. Addendum: 11/12/22 at 1432 by KB LUCIA RN ORDERED PRN ATIVAN IVP TO BE GIVEN BEFORE MRI
[2022-11-12] MEDS ORDERED: LORAZEPAM INJ 2 MG/ML VIAL IV PRN (12:00)
--- NOTE | 2022-11-12 15:58 | NUR ---
RN NOTES: PENDING MRI RN SPOKE TO SHAHNAZ FROM MRI, INQUIRED ETA IS FOR PT'S MRI, SHAHNAZ STATES UNSURE IF IT WILL BE DONE TODAY 11/12, WILL UPDATE RN. RN STATES TO LET HER KNOW AHEAD OF TIME SO PT CAN BE MEDICATED TO BE LESS ANXIOUS.
[2022-11-12] MEDS: DOCUSATE SODIUM 100 MG CAPSULE PO SCH (16:57)
[2022-11-12] MEDS: POLYETHYLENE GLYCOL 3350 17 GM POWD.PACK PO SCH (16:58)
--- NOTE | 2022-11-12 18:48 | NUR ---
SECURITY SCREENER CLOSING NOTES: PATIENT IN BED; ASLEEP, EASILY ROUSED, A/OX4 LATVIAN/TURKISH SPK. STABLE ON ROOM AIR, NO S/S OF SOB. TELE MONITORING READS SR, HR-77 BPM. IV ACCESS @ RIGHT AC #20g; INTACT AND PATENT INFUSING NS @ 75ML/HR. ALL DUE MEDS GIVEN, NEEDS MET. SAFETY MEASURES MAINTAINED: CALL LIGHT AND TABLE WITHIN EASY REACH, SIDE RAILS UP X 2, BED IN LOWEST LOCKED POSITION, WILL ENDORSE TO PM SHIFT. Addendum: 11/12/22 at 1917 by KB LUCIA RN IV ACCESS AT R HAND #20
--- NOTE | 2022-11-12 19:05 | NUR ---
RN opening notes Received Pt from morning nurse. Pt is resting in bed comfortably. Pt is alert and orientedX4. Pt speaks Syriac and able to make needs known. On room air. no SOB. No S/S of distress noted. IV site at R hand # 20 is clean, intact and infusing well NS @ 75 ml/hr. Tele monitor showed SR hr at 85. NPO tonight for MRI with contrast. Pt is aware and informed. Pt verbalized understanding. Ambulates with a steady gait. Safety precautions is maintained. bed at low position, brakes locked, side rails upX2, hob elevated and call light is within reach. will continue to monitor.
[2022-11-13] VITALS: BP 139/66
[2022-11-13 04:00] VITALS: BP 137/57
[2022-11-13] MEDS: PIPERACILLIN /TAZOBACTAM 3.375 G in IV D5W 50 ML IV SCH (05:21)
[2022-11-13 06:43] LABS: ALBUMIN 2.5 g/dL (3.4-5.0); BILIRUBIN,TOTAL 0.8 mg/dL (0.2-1.0); CALCIUM, SERUM 9.1 mg/dL (8.5-10.1); CREATININE 0.6 mg/dL (0.6-1.3); POTASSIUM 3.5 mmol/L (3.5-5.1); TOTAL PROTEIN, SERUM 6.2 g/dL (6.4-8.2)
[2022-11-13] MEDS: BLOOD SUGAR DIAGNOSTIC 1 EACH STRIP IN SCH ×4 (06:44→22:07)
[2022-11-13] MEDS: INSULIN REGULAR, HUMAN 100 UNIT/ML 3 ML VIAL SQ PRN ×2 (06:44→17:36)
--- NOTE | 2022-11-13 06:44 | NUR ---
RN notes Pt's blood sugar 138. held coverage because NPO status for MRI.
--- NOTE | 2022-11-13 06:45 | NUR ---
RN closing notes Pt is resting in bed comfortably. Pt is alert and orientedX4. Pt speaks Brazilian and able to make needs known. On room air. no SOB. No S/S of distress noted. VS is stable. IV site at R hand # 20 is clean, intact and infusing well NS @ 75 ml/hr. Tele monitor showed SR hr at 64. NPO. Routine meds were given as ordered. Kept Pt clean, dry and comfortable. Safety precautions is maintained. bed at low position, brakes locked, side rails upX2, hob elevated and call light is within reach. Will endorse to am nurse for MARLO
[2022-11-13 07:00] VITALS: BP 155/77
--- NOTE | 2022-11-13 08:07 | NUR ---
MANUFACTURING AREA MANAGER Opening Note Recieved Patient on bed, awake, A?O x4, American/Chinese speaking, on RA, VTE score of 2, able to make needs known. IV site at R hand # 20 , intact and infusing well NS @ 75 ml/hr, on tele monitor. VS Q4. NPO for MRI with contrast. Pt is aware and informed. Pt verbalized understanding. Safety precautions in place. Bed at lowest position, brakes locked, side rails upX2. Call light at reach. Will continue to monitor patient.
[2022-11-13] MEDS: DOCUSATE SODIUM 100 MG CAPSULE PO SCH ×3 (09:00→17:11)
[2022-11-13] MEDS: POLYETHYLENE GLYCOL 3350 17 GM POWD.PACK PO SCH ×2 (09:00→09:25)
--- NOTE | 2022-11-13 09:00 | NUR ---
RIVETER PNEUMATIC Note Patient refused Colace and Miralax. Explained the important of taking these med. Patient still refused these med. Performed Return Colace and Miralax at [facility].
[2022-11-13] MEDS: BENAZEPRIL HCL 20 MG TABLET PO SCH (09:28)
[2022-11-13] MEDS: PANTOPRAZOLE 40 MG/PACK PACK PO SCH (09:28)
[2022-11-13 12:00] VITALS: BP 144/73
[2022-11-13] MEDS: LEVOFLOXACIN (250MG) 250 MG TABLET PO SCH (12:16)
[2022-11-13 16:00] VITALS: BP 157/70
[2022-11-13] MEDS ORDERED: GADOTERATE MEGLUMINE 10 MMOL/20 ML VIAL IV ONE (16:54)
--- NOTE | 2022-11-13 19:18 | NUR ---
RADIO RECORDER Closing Note Pt on bed comfortably speaking to daughter. Pt A/OX4. Pt speaks Hebrew, able to make needs known. On RA. No S/S of distress/SOB noted. VS WNR. IV site at R hand # 20 is inplaced, patent, infusing NS @ 75 ml/hr. Tele monitor SR 76. Diet cosistent carb, 2g Na. Assisted pt to restroom. Safety precautions in place, bed at low position, locked, side rails upX2, call light at reach. Will endorse to next shift nurse.
--- NOTE | 2022-11-13 19:26 | NUR ---
RN OPENING NOTE; RECEIVED PT IN BED AWAKED AOX4 MAURITANIAN SPEAKING WITH A LITTLE THAI,ABLE TO MAKE NEEDS KNOWN,ON RM AIR VIBHA WELL SAT 98%,NO SIGN SOB/DISTRESS NOTED,IV ACCESS ON R HAND 20G WITH NS 75ML/HR INFUSING WELL,SAFETY MEASURE IN PLACE,CALL LIGHT WITHIN REACH,WILL CONTINUE TO MONITOR.
[2022-11-13] MEDS: IV NS 0.9% 1,000 ML IV PRN (20:54)
[2022-11-14 00:49] VITALS: BP 141/80
[2022-11-14 02:59] VITALS: BP 140/70
[2022-11-14 05:22] VITALS: BP 140/70
[2022-11-14 05:30] VITALS: BP 153/71
--- NOTE | 2022-11-14 06:20 | NUR ---
RN CLOSING NOTE; PT IN BED AWAKED AOX4 ENGLISH SPEAKING WITH A LITTLE ARMENIAN,ABLE TO MAKE NEEDS KNOWN,ON RM AIR VIBHA WELL SAT 99%,NO SIGN SOB/DISTRESS NOTED,NO COMPLAIN OF PAIN/DISCOMFORT DURING SHIFT,DUE MEDS GIVEN ORDER,ALL NEEDS ATTENDED,IV ACCESS ON R HAND 20G WITH NS 75ML/HR INFUSING WELL,SAFETY MEASURE IN PLACE,CALL LIGHT WITHIN REACH,WILL ENDORSED TO NEXT SHIFT.
[2022-11-14] MEDS: BLOOD SUGAR DIAGNOSTIC 1 EACH STRIP IN SCH ×2 (06:37→11:42)
[2022-11-14 07:02] LABS: ALBUMIN 2.6 g/dL (3.4-5.0); BILIRUBIN,TOTAL 0.7 mg/dL (0.2-1.0); CALCIUM, SERUM 9.2 mg/dL (8.5-10.1); CREATININE 0.6 mg/dL (0.6-1.3); POTASSIUM 3.5 mmol/L (3.5-5.1); TOTAL PROTEIN, SERUM 6.4 g/dL (6.4-8.2)
--- NOTE | 2022-11-14 07:39 | NUR ---
VN Opening Note Recieved Patient on bed, awake, A/O x4, HOB elevated. Swedish/Spanish speaking, on RA, able to make needs known. IV site at R hand # 20 inplaced, intact and infusing well NS @ 75 ml/hr, on external automatic washer mechanic, SR 63. VS Q4. Walk to restroom. Safety precautions in place. Bed at lowest position, brakes locked, side rails upX2. Call light at reach. Will continue to monitor patient.
[2022-11-14 08:00] VITALS: BP 139/74
[2022-11-14] MEDS: DOCUSATE SODIUM 100 MG CAPSULE PO SCH (08:19)
[2022-11-14] MEDS: PANTOPRAZOLE 40 MG/PACK PACK PO SCH (08:20)
[2022-11-14] MEDS: POLYETHYLENE GLYCOL 3350 17 GM POWD.PACK PO SCH (08:20)
[2022-11-14] MEDS: BENAZEPRIL HCL 20 MG TABLET PO SCH (08:20)
[2022-11-14] MEDS: LEVOFLOXACIN (250MG) 250 MG TABLET PO SCH (11:35)
[2022-11-14] MEDS: INSULIN REGULAR, HUMAN 100 UNIT/ML 3 ML VIAL SQ PRN (11:49)
[2022-11-14 16:00] VITALS: BP 155/87
--- NOTE | 2022-11-14 16:30 | NUR ---
DISCHARGE NOTE Received order for discharge. Patient is A/O x 4, Tajik speaking. Stable on room air, no SOB or s/s of distress noted. Denies any pain or discomfort at this time. Discharge instructions given to patient and daughter, daughter translating, both verbalized understanding. Prescription for antibiotic and exitcare folder given to daughter. IV access removed, catheter tip intact. Pressure dressing applied. Patient left unit in stable condition with ryan Rosales via private car.
[2022-11-14] MEDS ORDERED: GLUCERNA SHAKE 237 ML CAN PO SCH (17:00)
== END 2022-11-14 16:40 | disposition home or self-care (01) | DRG 872 ==
LOC: ER 11:24 → TELE 20:19
PROVIDERS: ADMIT Nurse Practitioner Acute Care
DX: A41.51 Sepsis due to Escherichia coli [E. coli] (principal); E44.1 Mild protein-calorie malnutrition; N10 Acute pyelonephritis; E87.1 Hypo-osmolality and hyponatremia; Z20.822 Contact with and (suspected) exposure to COVID-19; E11.9 Type 2 diabetes mellitus without complications; I10 Essential (primary) hypertension; Z79.4 Long term (current) use of insulin; Z79.899 Other long term (current) drug therapy; N20.0 Calculus of kidney; E86.1 Hypovolemia; E88.09 Other disorders of plasma-protein metabolism, not elsewhere classified; R19.09 Other intra-abdominal and pelvic swelling, mass and lump; Z87.442 Personal history of urinary calculi; N73.9 Female pelvic inflammatory disease, unspecified
CPT/HCPCS: 36415; 71045-TC; 72197-TC; 80048-TC; 80053-TC; 80076-TC; 81001; 82962-TC; 83605-TC; 83735-TC; 84100-TC; 84484-TC; 85025-TC; 85730-TC; 87040-TC; 87081-TC; 87086-TC; 93307-TC; A4223; A9563; A9575; C9113; C9803; G0378; J0696; J1815; J1885; J2060; J2270; J2405; J2543; J3490; J7030; J7050; J7060

== ENCOUNTER 2025-04-08 09:07 | Inpatient (IN) | payer MEDICARE, OTHER ==
[~2025-04-08] VITALS: Ht 167.6 cm; Wt 72.6 kg
[~2025-04-08 09:07] MED LIST changes: -IBUP-1488 PO
[2025-04-08 10:01] LABS: PLATELET COUNT (AUTO) 248 K/uL (150-450); RED BLOOD CELL COUNT(AUTO) 4.72 MIL/uL (4.0-5.2); RED CELL DISTRIBUTION WIDTH 14.3 % (11.5-15.0); WHITE BLOOD COUNT (AUTO) 16.0 K/uL (4.3-11.0)
[2025-04-08 10:06] LABS: APPEARANCE,URINE SLIGHTLY CLOUDY (CLEAR); BLOOD, URINE NEGATIVE Ery/uL (NEGATIVE); LEUKOCYTE ESTERASE ,URINE 2+ (NEGATIVE); NITRITE, URINE POSITIVE (NEGATIVE); UGLUCOSE NEGATIVE (NEGATIVE)
[2025-04-08 10:14] LABS: CALCIUM, SERUM 9.6 mg/dL (8.5-10.1); CREATININE 0.9 mg/dL (0.6-1.3); SODIUM SERUM 137.0 mmol/L (136-145); UREA NITROGEN, BLOOD 11.0 mg/dL (7-18)
[2025-04-08 10:19] LABS: ASPARTATE AMINOTRANSFERASE 15.0 U/L (15-37); TOTAL PROTEIN, SERUM 7.3 g/dL (6.4-8.2)
[2025-04-08 10:22] LABS: ADD URINE CULTURE YES; SQUAMOUS EPITHELIAL CELL,UR Rare /HPF (None Seen)
[2025-04-08] MEDS ORDERED: ONDANSETRON HCL/PF 4 MG/2 ML VIAL ONE (10:36)
[2025-04-08] MEDS ORDERED: FENTANYL PF 100MCG/2ML AMPUL ONE (10:36)
[2025-04-08] MEDS ORDERED: KETOROLAC TROMETHAMINE 15 MG/ML VIAL ONE (10:36)
[2025-04-08] MEDS ORDERED: CEFTRIAXONE 1GM BAG (ER ONLY) 50 ML IV ONE (10:37)
[2025-04-08] MEDS: IV NS 0.9% 1,000 ML BAG IV ONE (10:40)
[2025-04-08] MEDS: FENTANYL PF 100MCG/2ML AMPUL IV ONE (10:40)
[2025-04-08] MEDS: CEFTRIAXONE 1 G in IV D5W 50 ML IV ONE (10:41)
[2025-04-08] MEDS: KETOROLAC TROMETHAMINE 15 MG/ML VIAL IV ONE (10:42)
[2025-04-08] MEDS: ONDANSETRON HCL/PF 4 MG/2 ML VIAL IV ONE (10:42)
[2025-04-08] MEDS ORDERED: MORPHINE SULFATE INJ 2 MG/ML DISP.SYRIN IV PRN (14:30)
[2025-04-08] MEDS ORDERED: MAGNESIUM HYDROXIDE 30 ML UDC PO PRN (14:30)
[2025-04-08] MEDS ORDERED: DOSING PER PHARMACY-CEFEPIME IVPB XX PRN (14:30)
[2025-04-08] MEDS ORDERED: MAG HYDROX/AL HYDROX/SIMETH 30 ML UDC PO PRN (14:30)
[2025-04-08] MEDS ORDERED: ONDANSETRON HCL/PF 4 MG/2 ML VIAL IVP PRN (14:30)
[2025-04-08] MEDS ORDERED: CEFTRIAXONE 1 G in IV D5W 50 ML IV SCH (14:30)
[2025-04-08] MEDS ORDERED: DIAZEPAM 5 MG/ML 2 ML DISP.SYRIN IV PRN (14:30)
[2025-04-08 15:00] VITALS: BP 150/70; TEMP 97.7
[2025-04-08] MEDS: CEFEPIME 2 GM in IV D5W 100 ML IV SCH (15:14)
[2025-04-08] MEDS: IV NS 0.9% 1,000 ML IV PRN (15:15)
[2025-04-08] MEDS: KETOROLAC TROMETHAMINE INJ 30 MG/ML VIAL IV SCH (15:15)
[2025-04-08 16:17] LABS: INR 1.02 (0.91-1.10)
[2025-04-08] MEDS ORDERED: DEXTROSE 50%-WATER 50 ML DISP.SYRIN IV PRN (17:00)
[2025-04-08] MEDS: ACETAMINOPHEN 325 MG TABLET PO PRN (17:23)
[2025-04-08] MEDS: INSULIN REGULAR, HUMAN 100 UNIT/ML 3 ML VIAL SQ PRN (17:45)
[2025-04-08] MEDS: BLOOD SUGAR DIAGNOSTIC 1 EACH STRIP IN SCH (17:46)
[2025-04-08 20:00] VITALS: BP 102/56; TEMP 98.4; O2SAT 96
[2025-04-09 07:30] VITALS: BP 119/109; TEMP 101.5; O2SAT 96
[2025-04-09 08:05] LABS: PLATELET COUNT (AUTO) 195 K/uL (150-450); RED BLOOD CELL COUNT(AUTO) 3.96 MIL/uL (4.0-5.2); RED CELL DISTRIBUTION WIDTH 14.4 % (11.5-15.0); WHITE BLOOD COUNT (AUTO) 13.4 K/uL (4.3-11.0)
[2025-04-09 08:18] LABS: CALCIUM, SERUM 8.6 mg/dL (8.5-10.1); CREATININE 0.9 mg/dL (0.6-1.3); PHOSPHORUS 2.4 mg/dL (2.5-4.9); SODIUM SERUM 140.0 mmol/L (136-145); UREA NITROGEN, BLOOD 13.0 mg/dL (7-18)
[2025-04-09] MEDS: BENAZEPRIL HCL 20 MG TABLET PO SCH (09:34)
[2025-04-09] MEDS: INSULIN GLARGINE, 100 UNIT/ML CARTRIDGE SQ SCH (09:36)
[2025-04-09] MEDS: K PHOS NEUTRAL 250 MG TABLET PO ONE (15:34)
[2025-04-09 16:00] VITALS: BP 93/63; TEMP 97.9; O2SAT 97
[2025-04-09 20:00] VITALS: BP 116/73; TEMP 99; O2SAT 95
[2025-04-10 07:27] LABS: PLATELET COUNT (AUTO) 151 K/uL (150-450); RED BLOOD CELL COUNT(AUTO) 3.66 MIL/uL (4.0-5.2); RED CELL DISTRIBUTION WIDTH 14.3 % (11.5-15.0); WHITE BLOOD COUNT (AUTO) 8.1 K/uL (4.3-11.0)
[2025-04-10 07:30] VITALS: BP 150/66; TEMP 97.5; O2SAT 97
[2025-04-10 08:02] LABS: CALCIUM, SERUM 8.4 mg/dL (8.5-10.1); CREATININE 0.8 mg/dL (0.6-1.3); SODIUM SERUM 138.0 mmol/L (136-145); UREA NITROGEN, BLOOD 14.0 mg/dL (7-18)
[2025-04-10 08:58] VITALS: BP 150/66
[2025-04-10] MEDS ORDERED: NITR100C6 PO (12:09)
== END 2025-04-11 | disposition home health service (06) | DRG 872 ==
LOC: ER 09:08 → MED 13:30
PROVIDERS: ADMIT Nurse Practitioner Family; ATTEND Nurse Practitioner Family
DX: A41.9 Sepsis, unspecified organism (principal); N10 Acute pyelonephritis; N13.2 Hydronephrosis with renal and ureteral calculous obstruction; E11.65 Type 2 diabetes mellitus with hyperglycemia; I10 Essential (primary) hypertension; E78.5 Hyperlipidemia, unspecified; Z87.442 Personal history of urinary calculi; Z87.440 Personal history of urinary (tract) infections; K44.9 Diaphragmatic hernia without obstruction or gangrene; Z79.899 Other long term (current) drug therapy; B96.20 Unspecified Escherichia coli [E. coli] as the cause of diseases classified elsewhere
CPT/HCPCS: 36415; 76856-TC; 80048-TC; 80076-TC; 81001; 82962-TC; 83690-TC; 83735-TC; 84100-TC; 85025-TC; 85730-TC; 87040-TC; 87086-TC; 87186-TC; A4223; G0378; J0692; J0696; J1815; J1885; J2405; J3010; J7030; J7060

== ENCOUNTER 2025-04-21 14:52 | Emergency (ER) | payer MEDICARE, OTHER ==
[~2025-04-21] VITALS: Ht 167.6 cm; Wt 81.6 kg
[2025-04-21 15:36] VITALS: TEMP 98.2
[2025-04-21] MEDS ORDERED: CEFTRIAXONE 1GM BAG (ER ONLY) 1 GM/50 ML PIGGYBACK IV ONE (16:00)
[2025-04-21] MEDS: CEFTRIAXONE 2 G in IV D5W 100 ML IV ONE (16:30)
[2025-04-21 17:28] VITALS: BP 130/87; O2SAT 98
== END 2025-04-21 17:20 | disposition home or self-care (01) ==
LOC: ER 15:08
DX: N12 Tubulo-interstitial nephritis, not specified as acute or chronic (principal); E11.9 Type 2 diabetes mellitus without complications; I11.9 Hypertensive heart disease without heart failure; Z79.4 Long term (current) use of insulin
CPT/HCPCS: 99285; 96365; 36410; J0696; J7060